=== PATIENT | female | born 2000 | race Caucasian/White ===

== ENCOUNTER 2021-02-19 14:09 | Emergency (ER) | payer MEDICAID, SELFPAY ==
[2021-02-19 14:25] VITALS: BP 107/75; PULSE 103; RESP 16; TEMP 36.7; O2SAT 97; BMI 28.8
--- NOTE | 2021-02-19 16:31 | USR_ITS ---
PROCEDURE INFORMATION: Exam: US First Trimester, Transabdominal and US , Transvaginal Exam date and time: 02/19/2021 4:31 PM Age: 20 years old Clinical indication: Other: Pain, cramping; Gestational age or lmp: 12 wks 1 day; ; Additional info: Pain/cramping TECHNIQUE: Imaging protocol: Real-time transabdominal obstetrical ultrasound of the maternal pelvis and a first trimester , less than 14 weeks 0 days, with image documentation. Transvaginal imaging was used for better evaluation of the fetus, adnexa, and/or cervix. COMPARISON: No relevant prior studies available. FINDINGS: Gestation: Single live intrauterine Embryonic/ heart rate: 167 bpm Extra-embryonic membranes/Placenta: Unremarkable. No subchorionic bleed. Amniotic fluid: Amniotic fluid/chorionic fluid is normal for gestational age. BIOMETRY: Gestational age (AUA): 12 weeks 6 day Estimated due date (AUA): 08/28/2021 [place] length: 6.52 cm 12 weeks 6 day MATERNAL: Uterus: Uterus measures 10.9 x 9.5 x 9.6 cm. Cervix: Unremarkable. Right ovary/adnexa: Right ovary not visualized Left ovary/adnexa: Left ovary not visualized Intraperitoneal space: No intraperitoneal free fluid. US/US OB <= 14 weeks fetus [id number] IMPRESSION: Single live intrauterine of approximately 12 weeks 6 days gestational age. Radiation Dose CTDIVOL = (mGy): DLP = (mGy-cm)
--- NOTE | 2021-02-19 16:31 | W.ED.PREGNAN ---
Documented by User: KEMAR Mcarthur 02/20/21 07:10 HPI - General: Chief complaint: Urogenital-Female Stated complaint: 12w peg, spotting and cramping Time Seen by Provider: 02/19/21 16:21 Source: patient and family Mode of arrival: ambulatory Limitations: no limitations History of Present Illness: HPI Narrative: Patient is a 20-year-old female at approximately 12 weeks here along with her mother for concerns of lower abdominal/pelvic pain and cramping and vaginal bleeding/discharge. Mother states patient has had intermittent episodes of pelvic cramping over the past 4 days. She states when she wiped yesterday evening she saw a small amount of blood on the toilet paper. She states she has not had any further bleeding but states when she wiped today she noticed yellow mucus-like discharge. Patient denies urinary symptoms. She states the pain feels crampy and radiates into her lower back and makes her have the urge to defecate. Patient states she is sexually active/monogamous with her but they have not engaged in intercourse since they found out she was . Patient states was confirmed/intrauterine during an ultrasound at [facility]. Associated symptoms: Reports abdominal pain and vaginal discharge; Deny dysuria, headache(s), malaise, nausea or vomiting Review of Systems Const: Denies: fever(s), chills, body aches, fatigue or malaise Card: Denies: chest pain Resp: Denies: dyspnea GI: Reports: abdominal pain; Denies: nausea, vomiting or diarrhea : Reports: vaginal bleeding, vaginal discharge and pelvic pain; Denies: flank pain, difficulty voiding, dysuria, urinary frequency, urinary urgency, hematuria, genital lesions, genital pruritis or vaginal odor Musc: Reports: back pain; Denies: neck pain, extremity pain or joint pain Skin/Breast: Denies: rash Neuro: Denies: headache(s), numbness in extremities, weakness in extremities or sensory changes PFS ED PFSH: Medical History No pertinent past medical history Denies diabetes, asthma, hypertension, seizures, DVT/PE PCP: LUIS Aguillon Surgical History No history of previous surgery Family History Grandfather Hyperlipidemia maternal Hypertension maternal Stroke maternal Heart disease maternal and paternal Mother Thyroid condition Grandmother Heart disease maternal and paternal Breast cancer paternal, diagnosed at age 54 Colon cancer maternal, age at diagnosis unknown Family/Other Uterine cancer maternal aunt, diagnosed in her 30s. Treated with hysterectomy and chemo therapy. Denies family history of Ovarian cancer Diabetes Social History Smoking and tobacco status: never smoked Course Vital Signs: Vital signs: Vital Signs Temperature 98.0 F 02/19/21 14:25 Pulse Rate 89 02/19/21 19:01 Respiratory Rate 16 02/19/21 19:01 Blood Pressure 111/77 02/19/21 19:01 Pulse Oximetry 97 02/19/21 19:01 MDM - OB/Uterine Contractions MDM Narrative: Medical decision making narrative: Care transferred to LUIS Gutierrez pending labs/UA/OB US/pelvic exam. Lab Data: Labs: Lab Results 02/19/21 02/19/21 02/19/21 17:00 17:15 17:15 Hgb 12.5 g/dL g/dL (11.5-15.3) Hct 38.8 % % (37.0-47.0) Ser , Mihir i-Qnt Urine Color Dark yellow (Yellow) Urine Appearance Sl hazy (CLEAR) Urine pH 6 (5-7) Ur Specific Gravit y 1.020 (1.005-1.030) Urine Protein Neg (Negative) Urine Glucose (UA) Norm (Normal) Urine Ketones Negative (Negative) Urine Blood Neg (Negative) Urine Nitrate Negative (Negative) Urine Bilirubin 1+ H (Negative) Urine Urobilinogen 1 mg/dL H mg/dL (Negative) Ur Leukocyte Reyna ase 2+ H (Negative) Urine RBC 0-4 /hpf H /hpf (0-2) Urine WBC 25-40 /hpf H /hpf (0-5) Ur Squamous Epith Cells 25-40 /hpf H /hpf (0-5) Amorphous Sediment Not Reportable Urine Bacteria 2+ /hpf H /hpf (NONE) Urine Mucus 2+ /hpf /hpf Blood Type A Positive Rho(D) Type Positive 02/19/21 17:15 Hgb Hct Ser , Mihir i-Qnt 78518.00 mIU/mL m IU/mL Urine Color Urine Appearance Urine pH Ur Specific Gravit y Urine Protein Urine Glucose (UA) Urine Ketones Urine Blood Urine Nitrate Urine Bilirubin Urine Urobilinogen Ur Leukocyte Reyna ase Urine RBC Urine WBC Ur Squamous Epith Cells Amorphous Sediment Urine Bacteria Urine Mucus Blood Type Rho(D) Type Discharge Plan Discharge Patient Disposition: Home Clinical Impression: Urinary tract infection Qualifiers: Urinary tract infection type: acute cystitis Hematuria presence: without hematuria Qualified Code(s): N30.00 - Acute cystitis without hematuria Condition: Stable Prescriptions: New Macrobid 100 mg capsule 100 mg PO BID 5 Days Qty: 10 RF: 0 Discontinued cephalexin 500 mg capsule 500 mg PO TID 7 Days Qty: 21 RF: 0 Discharge Orders: Discharge ED (Routine); Ordered 02/19/21 Ordered By: Hari Hinkle Referrals: Fely Soto FNP [Primary Care Provider] - Discharge Diet: Usual diet Discharge Activity: Increase activity as tolerated Patient Instructions: Urinary Tract Infection in Women (ED) Activity Restrictions/Additional Instructions: Follow-up with medical provider as directed. Take medications as prescribed. Return to the ER or your medical provider if condition worsens. Please read and understand discharge instructions. If any questions ask please. Coding Level of Care Code ED Head Of Sales Promotion for Chg Fwd Exam Comprehensive Documented by User: LUIS Gutierrez 02/19/21 20:04 HPI - General: Chief complaint: Urogenital-Female Stated complaint: 12w peg, spotting and cramping Time Seen by Provider: 02/19/21 16:21 History of Present Illness: Associated symptoms: Deny vaginal bleeding [facility] ED PFSH: Medical History No pertinent past medical history Denies diabetes, asthma, hypertension, seizures, DVT/PE PCP: LUIS Aguillon Surgical History No history of previous surgery Family History Grandfather Hyperlipidemia maternal Hypertension maternal Stroke maternal Heart disease maternal and paternal Mother Thyroid condition Grandmother Heart disease maternal and paternal Breast cancer paternal, diagnosed at age 54 Colon cancer maternal, age at diagnosis unknown Family/Other Uterine cancer maternal aunt, diagnosed in her 30s. Treated with hysterectomy and chemo therapy. Denies family history of Ovarian cancer Diabetes Social History Smoking and tobacco status: never smoked Physical Exam Const: COMMON NORMALS: no acute distress, average body habitus and patient oriented x3 HENMT: COMMON NORMALS: normocephalic HEAD & SCALP: normal to inspection and normocephalic FACE & SINUS: normal facial exam Eye: COMMON NORMALS: conjunctivae normal GENERAL EYE: appearance normal, both eyes and all related structures CONJUNCTIVA: Yes conjunctivae normal Neck/C-Spine: COMMON NORMALS: no JVD Chest: COMMONS NORMALS: normal inspection of the chest Resp: COMMON NORMALS: normal respiratory effort and clear to auscultation bilaterally AUSCULTATION: clear to auscultation bilaterally Cardio: COMMON NORMALS: no JVD, regular rate and regular rhythm RATE: regular rate RHYTHM: regular rhythm GI: COMMON NORMALS: Normal to inspection, nondistended, normoactive bowel sounds present : COMMON NORMALS: Yes no CVA tenderness BLADDER/KIDNEY EXAM: Yes no CVA tenderness EXTERNAL FEMALE EXAM: Yes normal appearance of the urethra SPECULUM EXAM - VAGINA: No vaginal bleeding, No tissue present in vagina, No mass, No swelling, No tenderness and Yes Vaginal discharge present Vaginal discharge present: normal SPECULUM EXAM - CERVIX: No Cervical os open, No Abnormal cervical discharge present and No Cervical tenderness present BIMANUAL EXAM - VAGINA & UTERUS: No Cervical tenderness present OB/EXTERNAL & SPECULUM: no tissue noted in vagina, Cervical os open and vaginal bleeding Back/Pelvis: COMMON NORMALS: no CVA tenderness Extremity: COMMON NORMALS: normal to inspection and full ROM Neuro: COMMON NORMALS: patient oriented x3 Course Vital Signs: Vital signs: Vital Signs Temperature 98.0 F 02/19/21 14:25 Pulse Rate 89 02/19/21 19:01 Respiratory Rate 16 02/19/21 19:01 Blood Pressure 111/77 02/19/21 19:01 Pulse Oximetry 97 02/19/21 19:01 MDM - OB/Uterine Contractions MDM Narrative: Medical decision making narrative: Patient presented with vaginal discharge and pelvic pressure. Recently evaluated at [facility] ER for a child following her abdomen. Patient ultrasound shows 12 weeks 6 days . Patient not having vaginal bleeding. Vaginal exam reveals normal discharge. Cervix looks fine os is closed. UA showed possible appear to be contaminated. 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 Lab Data: Labs: Lab Results 02/19/21 02/19/21 02/19/21 17:00 17:15 17:15 Hgb 12.5 g/dL g/dL (11.5-15.3) Hct 38.8 % % (37.0-47.0) Ser , Mihir i-Qnt Urine Color Dark yellow (Yellow) Urine Appearance Sl hazy (CLEAR) Urine pH 6 (5-7) Ur Specific Gravit y 1.020 (1.005-1.030) Urine Protein Neg (Negative) Urine Glucose (UA) Norm (Normal) Urine Ketones Negative (Negative) Urine Blood Neg (Negative) Urine Nitrate Negative (Negative) Urine Bilirubin 1+ H (Negative) Urine Urobilinogen 1 mg/dL H mg/dL (Negative) Ur Leukocyte Reyna ase 2+ H (Negative) Urine RBC 0-4 /hpf H /hpf (0-2) Urine WBC 25-40 /hpf H /hpf (0-5) Ur Squamous Epith Cells 25-40 /hpf H /hpf (0-5) Amorphous Sediment Not Reportable Urine Bacteria 2+ /hpf H /hpf (NONE) Urine Mucus 2+ /hpf /hpf Blood Type A Positive Rho(D) Type Positive 02/19/21 17:15 Hgb Hct Ser , Mihir i-Qnt 79332.00 mIU/mL m IU/mL Urine Color Urine Appearance Urine pH Ur Specific Gravit y Urine Protein Urine Glucose (UA) Urine Ketones Urine Blood Urine Nitrate Urine Bilirubin Urine Urobilinogen Ur Leukocyte Reyna ase Urine RBC Urine WBC Ur Squamous Epith Cells Amorphous Sediment Urine Bacteria Urine Mucus Blood Type Rho(D) Type Discharge Plan Discharge Patient Disposition: Home Clinical Impression: Urinary tract infection Qualifiers: Urinary tract infection type: acute cystitis Hematuria presence: without hematuria Qualified Code(s): N30.00 - Acute cystitis without hematuria Condition: Stable Prescriptions: New Macrobid 100 mg capsule 100 mg PO BID 5 Days Qty: 10 RF: 0 Discontinued cephalexin 500 mg capsule 500 mg PO TID 7 Days Qty: 21 RF: 0 Discharge Orders: Discharge ED (Routine); Ordered 02/19/21 Ordered By: Hari Hinkle Referrals: Fely Soto FNP [Primary Care Provider] - Discharge Diet: Usual diet Discharge Activity: Increase activity as tolerated Patient Instructions: Urinary Tract Infection in Women (ED) Activity Restrictions/Additional Instructions: Follow-up with medical provider as directed. Take medications as prescribed. Return to the ER or your medical provider if condition worsens. Please read and understand discharge instructions. If any questions ask please. Coding Level of Care Code ED Head Of Sales Promotion for Chg Fwd Exam Comprehensive Documented by User: Dominic Singh MD 02/23/21 21:37 HPI - General: Chief complaint: Urogenital-Female Stated complaint: 12w peg, spotting and cramping Time Seen by Provider: 02/19/21 16:21 PFS ED PFSH: Medical History No pertinent past medical history Denies diabetes, asthma, hypertension, seizures, DVT/PE PCP: LUIS Aguillon Surgical History No history of previous surgery Family History Grandfather Hyperlipidemia maternal Hypertension maternal Stroke maternal Heart disease maternal and paternal Mother Thyroid condition Grandmother Heart disease maternal and paternal Breast cancer paternal, diagnosed at age 54 Colon cancer maternal, age at diagnosis unknown Family/Other Uterine cancer maternal aunt, diagnosed in her 30s. Treated with hysterectomy and chemo therapy. Denies family history of Ovarian cancer Diabetes Social History Smoking and tobacco status: never smoked Course Vital Signs: Vital signs: Vital Signs Temperature 98.0 F 02/19/21 14:25 Pulse Rate 89 02/19/21 19:01 Respiratory Rate 16 02/19/21 19:01 Blood Pressure 111/77 02/19/21 19:01 Pulse Oximetry 97 02/19/21 19:01 MDM - OB/Uterine Contractions MDM Narrative: Medical decision making narrative: I have reviewed this documentation. Dominic Singh MD Emergency Medicine Lab Data: Labs: Lab Results 02/19/21 02/19/21 02/19/21 17:00 17:15 17:15 Hgb 12.5 g/dL g/dL (11.5-15.3) Hct 38.8 % % (37.0-47.0) Ser , Mihir i-Qnt Urine Color Dark yellow (Yellow) Urine Appearance Sl hazy (CLEAR) Urine pH 6 (5-7) Ur Specific Gravit y 1.020 (1.005-1.030) Urine Protein Neg (Negative) Urine Glucose (UA) Norm (Normal) Urine Ketones Negative (Negative) Urine Blood Neg (Negative) Urine Nitrate Negative (Negative) Urine Bilirubin 1+ H (Negative) Urine Urobilinogen 1 mg/dL H mg/dL (Negative) Ur Leukocyte Reyna ase 2+ H (Negative) Urine RBC 0-4 /hpf H /hpf (0-2) Urine WBC 25-40 /hpf H /hpf (0-5) Ur Squamous Epith Cells 25-40 /hpf H /hpf (0-5) Amorphous Sediment Not Reportable Urine Bacteria 2+ /hpf H /hpf (NONE) Urine Mucus 2+ /hpf /hpf Blood Type A Positive Rho(D) Type Positive 02/19/21 17:15 Hgb Hct Ser , Mihir i-Qnt 48711.00 mIU/mL m IU/mL Urine Color Urine Appearance Urine pH Ur Specific Gravit y Urine Protein Urine Glucose (UA) Urine Ketones Urine Blood Urine Nitrate Urine Bilirubin Urine Urobilinogen Ur Leukocyte Reyna ase Urine RBC Urine WBC Ur Squamous Epith Cells Amorphous Sediment Urine Bacteria Urine Mucus Blood Type Rho(D) Type Discharge Plan Discharge Patient Disposition: Home Clinical Impression: Urinary tract infection Qualifiers: Urinary tract infection type: acute cystitis Hematuria presence: without hematuria Qualified Code(s): N30.00 - Acute cystitis without hematuria Condition: Stable Prescriptions: New Macrobid 100 mg capsule 100 mg PO BID 5 Days Qty: 10 RF: 0 Discontinued cephalexin 500 mg capsule 500 mg PO TID 7 Days Qty: 21 RF: 0 Discharge Orders: Discharge ED (Routine); Ordered 02/19/21 Ordered By: Hari Hinkle Referrals: Fely Soto FNP [Primary Care Provider] - Discharge Diet: Usual diet Discharge Activity: Increase activity as tolerated Patient Instructions: Urinary Tract Infection in Women (ED) Activity Restrictions/Additional Instructions: Follow-up with medical provider as directed. Take medications as prescribed. Return to the ER or your medical provider if condition worsens. Please read and understand discharge instructions. If any questions ask please. Coding Level of Care Code ED Head Of Sales Promotion for Barbara Fwd Exam Comprehensive
[2021-02-19 17:19] VITALS: BP 115/66; PULSE 87; RESP 16; O2SAT 100
[2021-02-19 17:26] LABS: Hematocrit 38.8 % (37.0-47.0); Hemoglobin 12.5 g/dL (11.5-15.3)
[2021-02-19 18:13] LABS: Add Urine Culture? No; Add Urine Microscopic? YES; Bacteria Urine 2+ /hpf; Bilirubin Urine 1+ (Negative); Blood Urine Neg (Negative); Glucose Urine UA Norm (Normal); Ketones Urine Negative (Negative); Leukocyte Esterase Urine 2+ (Negative); Mucus Urine 2+ /hpf; Nitrate Urine Negative (Negative); Protein Urine Neg (Negative); RBC Urine 0-4 /hpf (0-2); Squamous Epithelial Cell Urine 25-40 /hpf (0-5); Urine Appearance SL Hazy (CLEAR); Urine Color Dark Yellow (Yellow); Urobilinogen Urine 1 mg/dL (Negative); WBC Urine 25-40 /hpf (0-5); pH Urine 6 (5-7)
[2021-02-19] MEDS: nitrofurantoin SR (BID) 100 mg Capsule PO (18:53)
--- NOTE | 2021-02-19 19:00 | PC.NURSE ---
REPORT GIVEN TO DEBORA BHAGAT ASSUMED CARE
[2021-02-19 19:01] VITALS: BP 111/77; PULSE 89; RESP 16; O2SAT 97
== END 2021-02-19 19:02 | disposition home or self-care (01) ==
PROVIDERS: Emergency Medicine; Physician Assistant; Emergency Provider Nurse Practitioner Family; PCP Nurse Practitioner Family
DX: M54.50 Low back pain, unspecified (principal); O23.41 Unspecified infection of urinary tract in pregnancy, first trimester; N30.00 Acute cystitis without hematuria; Z3A.12 12 weeks gestation of pregnancy
CPT/HCPCS: 76801; 81001; 84702; 85014; 85018; 86900; 87070; 87210; 87491; 87591; 99283

== ENCOUNTER 2021-05-27 15:21 | Emergency (ER) | payer MEDICAID, SELFPAY ==
[2021-05-27 15:57] VITALS: BP 92/62; PULSE 115; RESP 18; TEMP 36.9; O2SAT 99; BMI 29.6
--- NOTE | 2021-05-27 18:36 | XRR_ITS ---
PROCEDURE INFORMATION: Exam: XR Chest Exam date and time: 05/27/2021 6:36 PM Age: 21 years old Clinical indication: Cough and fever TECHNIQUE: Imaging protocol: XR of the chest. Views: 1 view. COMPARISON: CR Chest 2 views* [id number] 08/21/2018 8:14 PM FINDINGS: Lungs: Unremarkable. No consolidation. Pleural spaces: Unremarkable. No pleural effusion. No pneumothorax. Heart/Mediastinum: Unremarkable. No cardiomegaly. Bones/joints: Unremarkable. XR/XR chest 1V portable [id number] IMPRESSION: No acute findings.
--- NOTE | 2021-05-27 18:37 | W.ED.URI ---
HPI - URI/Sore Throat General: Chief Complaint: Fever Stated Complaint: SOB Time Seen by Provider: 05/27/21 17:47 History of Present Illness: Patient is a 21-year-old female that is 26 weeks comes to the ED with upper respiratory. Symptoms started several days ago. Patient's just tested positive for influenza A. Patient endorses having nonproductive cough, fever, chills, body aches. She denies any symptoms concerning her . Denies any dysuria, vaginal bleeding, vaginal discharge, abdominal pain or nausea and vomiting. Associated symptoms: Reports chills and fever(s); Deny abdominal pain, chest pain, diarrhea, headache(s), nasal congestion, nausea or vomiting Review of Systems Const: Reports: fever(s), chills and body aches; Denies: fatigue Eyes: Denies: change in vision or eye discomfort ENMT: Denies: throat pain, odynophagia, nasal discharge or nasal congestion Card: Denies: chest pain, palpitations, edema, swelling of feet/ankles, dyspnea on exertion or orthopnea Resp: Reports: non-productive cough; Denies: dyspnea or productive cough GI: Denies: abdominal pain, nausea, vomiting, diarrhea, constipation or hematochezia : Denies: flank pain, dysuria or hematuria Musc: Denies: neck pain, back pain or extremity swelling Skin/Breast: Denies: rash or new lesions Neuro: Denies: headache(s), numbness in extremities or weakness in extremities PFSH ED PFSH: Medical History No pertinent past medical history Denies diabetes, asthma, hypertension, seizures, DVT/PE PCP: LUIS Aguillon Surgical History No history of previous surgery Family History Grandfather Hyperlipidemia maternal Hypertension maternal Stroke maternal Heart disease maternal and paternal Mother Thyroid condition Grandmother Heart disease maternal and paternal Breast cancer paternal, diagnosed at age 54 Colon cancer maternal, age at diagnosis unknown Family/Other Uterine cancer maternal aunt, diagnosed in her 30s. Treated with hysterectomy and chemo therapy. Denies family history of Ovarian cancer Diabetes Social History Smoking and tobacco status: never smoked Physical Exam Const: COMMON NORMALS: no acute distress, patient oriented x3 and alert GENERAL APPEARANCE: cooperative and comfortable HENMT: COMMON NORMALS: normocephalic HEAD & SCALP: normocephalic MOUTH: Normal oral and palatal mucosa present THROAT: posterior oropharynx normal and uvula midline Neck/C-Spine: COMMON NORMALS: supple GENERAL: Yes normal visual inspection Resp: COMMON NORMALS: normal respiratory effort, No retractions, No use of accessory muscles and clear to auscultation bilaterally AUSCULTATION: clear to auscultation bilaterally Cardio: COMMON NORMALS: regular rate, regular rhythm, S1 normal heart sound present, S2 normal heart sound present, No gallops present (Cardio), No clicks present (Cardio), No murmurs present (Cardio) and Peripheral pulses 2+ throughout RATE: regular rate RHYTHM: regular rhythm HEART SOUNDS: S1 normal heart sound present and S2 normal heart sound present PERIPHERAL PULSES: Peripheral pulses 2+ throughout GI: COMMON NORMALS: Normal to inspection, nondistended, normoactive bowel sounds present, Soft to palpation, non-tender and no masses PALPATION: Yes Soft to palpation : COMMON NORMALS: Yes no CVA tenderness BLADDER/KIDNEY EXAM: Yes no CVA tenderness Back/Pelvis: COMMON NORMALS: no CVA tenderness Extremity: COMMON NORMALS: normal to inspection and no pedal edema Neuro: COMMON NORMALS: patient oriented x3 and moves all extremities SENSORIUM/ORIENTATION: Yes alert Skin: GENERAL SKIN EXAM: dry skin Course ED course: Nurse used Doppler to check heart tones. heart tones were detected at a rate of 155 bpm. Vital Signs: Vital signs: Vital Signs Temperature 98.6 F 05/27/21 19:52 Pulse Rate 120 H 05/27/21 19:52 Respiratory Rate 18 05/27/21 19:52 Blood Pressure 116/58 05/27/21 19:52 Pulse Oximetry 97 05/27/21 19:52 MDM - URI/Sore Throat Medical Decision Making Patient is a 21-year-old female comes to the ED with upper respiratory symptoms. She is currently 26 weeks . patient's just tested positive for influenza a. Denies any related complaints such as abdominal pain, nausea/vomiting, bladder symptoms or any vaginal bleeding or vaginal discharge. Vitals are stable. Patient was given Tylenol while here in the ED to help with body aches. Influenza a was positive. Chest x-ray showed no acute findings. Nurse performed Doppler and was able to detect heart tones at a rate of 155 bpm. Patient was diagnosed with influenza A and discharged home. She was told to follow-up with her OB doctor at her next scheduled appointment on June 01. Return to ED precautions given. Patient understood and agreed with plan. Lab Data Radiology Impressions Chest X-Ray 05/27/21 18:36 IMPRESSION: No acute findings. Laboratory Results Nasal Influ A H1 2009 PCR Cancelled 05/27/21 21:09 Coronavirus 229E (PCR) Not detected (NOT DETECT) 05/27/21 19:08 Influenza A (H1) PCR Cancelled 05/27/21 21:09 Influenza A (H3) PCR Cancelled 05/27/21 21:09 Influenza Type A (PCR) Cancelled 05/27/21 21:09 Influenza Type B (PCR) Cancelled 05/27/21 21:09 SARS-CoV-2 (PCR) Not detected (NOT DETECT) 05/27/21 19:08 Discharge Plan Discharge Patient Disposition: Home Clinical Impression: Influenza A, Viral syndrome Condition: Stable Discharge Orders: Discharge ED (Routine); Ordered 05/27/21 Ordered By: Saroj Ruiz Referrals: Fely Soto FNP [Primary Care Provider] - Discharge Diet: Regular Discharge Activity: Resume usual activity Patient Instructions: Viral Syndrome (ED) Activity Restrictions/Additional Instructions: Follow-up with medical provider as directed at your next scheduled appointment on June 01. Drink plenty of fluids and stay hydrated. Take [id number] Tylenol for any fevers. Return to the ER or your medical provider if condition worsens. Please read and understand discharge instructions. Thank you for choosing [facility] for your healthcare needs today. Please realize this is an emergency room and that we are providing you with a medical screening exam and this may not be complete and all inclusive of all the testing and or work up that you may need to determine your ailment or severity of your illness. It is very important that you follow up as instructed or that you return to the Emergency Department should you have concerns or if your condition changes or worsens in any way. Stand Alone Forms: Work/School Release Coding Level of Care Code ED Air Carrier Maintenance Inspector for Barbara Javed Exam Comprehensive
[2021-05-27] MEDS: acetaminophen 500 mg Tablet 1000 MG PO (19:06)
[2021-05-27 19:52] VITALS: BP 116/58; PULSE 120; RESP 18; TEMP 37; O2SAT 97
[2021-05-27 20:56] LABS: Adenovirus Not Detected (NOT DETECT); Chlamydia Pneumoniae Not Detected (NOT DETECT); Coronavirus 229E,HKU1,NL63,OC4 Not Detected (NOT DETECT); Human Metapneumovirus Not Detected (NOT DETECT); Human Rhinovirus/Enterovirus Not Detected (NOT DETECT); Influenza A Detected (NOT DETECT); Influenza A H1 Not Detected (NOT DETECT); Influenza A H1-2009 Not Detected (NOT DETECT); Influenza A H3 Detected (NOT DETECT); Influenza B Not Detected (NOT DETECT); Mycoplasma Pneumoniae Not Detected (NOT DETECT); Parainfluenza Virus Type 1 Not Detected (NOT DETECT); Parainfluenza Virus Type 2 Not Detected (NOT DETECT); Parainfluenza Virus Type 3 Not Detected (NOT DETECT); Parainfluenza Virus Type 4 Not Detected (NOT DETECT); Respiratory Syncytial Virus A Not Detected (NOT DETECT); Respiratory Syncytial Virus B Not Detected (NOT DETECT); SARS-COV-2 Not Detected (NOT DETECT)
[2021-05-27 21:09] LABS: Results from Genmark
== END 2021-05-27 19:54 | disposition home or self-care (01) ==
PROVIDERS: Nurse Practitioner Family; Emergency Provider Physician Assistant; PCP Nurse Practitioner Family
DX: J10.1 Influenza due to other identified influenza virus with other respiratory manifestations (principal); B34.9 Viral infection, unspecified; Z20.822 Contact with and (suspected) exposure to COVID-19
CPT/HCPCS: 71045; 87631; 87635; 99283

== ENCOUNTER 2021-08-13 22:31 | Outpatient (CLI) | payer MEDICAID, SELFPAY ==
[2021-08-13 22:43] VITALS: BP 112/72; PULSE 109; TEMP 36.1
[2021-08-13 22:46] VITALS: RESP 16
[2021-08-13 22:47] VITALS: BMI 31.9
[2021-08-13 23:05] LABS: Bilirubin Urine Neg (Negative); Blood Urine Neg (Negative); Glucose Urine UA Norm (Normal); Ketones Urine 1+ (Negative); Leukocyte Esterase Urine 2+ (Negative); Nitrate Urine Negative (Negative); Protein Urine Trace (Negative); Specific Gravity, Urine 1.025 (1.005-1.030); Urine Color Yellow (Yellow); Urobilinogen Urine 4 mg/dL (Negative); pH Urine 5 (5-7)
[2021-08-13 23:06] LABS: Urine Appearance Hazy (CLEAR)
[2021-08-13 23:07] LABS: Add Urine Culture? No; Bacteria Urine 2+ /hpf; RBC Urine 0-4 /hpf (0-2); Squamous Epithelial Cell Urine >100 /hpf (0-5); WBC Urine 40-55 /hpf (0-5)
[2021-08-13 23:14] VITALS: BP 116/73; PULSE 102
[2021-08-13 23:25] VITALS: BP 116/73; PULSE 102; RESP 16; TEMP 36.1
== END 2021-08-13 23:25 | disposition home or self-care (01) ==
LOC: OPOB 22:31 → OBGYN 22:34
PROVIDERS: PCP Nurse Practitioner Family; Visit Provider Family Medicine
DX: O26.899 Other specified pregnancy related conditions, unspecified trimester (principal); Z3A.00 Weeks of gestation of pregnancy not specified; R10.9 Unspecified abdominal pain
CPT/HCPCS: 59025; 81001; 99211

== ENCOUNTER 2021-08-20 08:09 | Inpatient (IN) | payer MEDICAID, SELFPAY ==
[2021-08-19 23:12] VITALS: RESP 16
[2021-08-19 23:17] VITALS: BP 129/80; PULSE 93
[2021-08-19 23:26] VITALS: BMI 32.3
[2021-08-19 23:38] VITALS: BP 119/75; PULSE 96
[2021-08-19 23:46] VITALS: RESP 16
[2021-08-19 23:52] VITALS: BP 127/81; PULSE 100
[2021-08-20] VITALS (37 sets, daily range): BP systolic 87–130; BP diastolic 56–84; PULSE 72–118; RESP 16–18; TEMP 36.6–36.9; O2SAT 97
[2021-08-20 00:43] LABS: Hematocrit 33.2 % (37.0-47.0); Hemoglobin 9.5 g/dL (11.5-15.3); Mean Corpuscular HGB Conc 28.6 g/dL (30.0-36.0); Mean Corpuscular Hemoglobin 19.6 pg (28.0-34.0); Mean Corpuscular Volume 68.6 fl (81-99); Platelet Count 289 10^3/cmm (130-400); Red Blood Count 4.84 10^6/uL (4.1-5.3); Red Cell Distribution Width 16.4 % (12.1-15.1); White Blood Count 10.5 10^3/uL (4.0-10.0)
[2021-08-20 01:12] LABS: Rubella IgG 124.6 IU/mL (0.0-10.0)
[2021-08-20 01:13] LABS: Hepatitis B Surface Antigen Non-Reactive (Nonreactive)
[2021-08-20 01:18] LABS: Rapid Plasma Reagin Syphilis Nonreactive (Nonreactive)
[2021-08-20 01:19] LABS: HIV 1 & 2 Antibody Non-Reactive (Non-Reactiv); HIV 1 & 2 Antigen Non-Reactive (Non-Reactiv)
[2021-08-20 02:00] LABS: Absolute Eosinophils 0.4 10^3/cmm (0.0-0.7); Absolute Neutrophil 7.5 10^3/cmm (1.4-6.5); Absolute Segmented Neutrophil 7.5 10/cmm (1.6-7.1); Eosinophils 4 %; Lymphocytes 21 %; Lymphocytes Absolute 2.3 10^3/cmm (1.2-3.4); Monocytes Absolute 0.3 10^3/cmm (0.1-0.6); Platelet Estimate Normal (Normal); Segmented Neutrophils 71 %; Total Cells Counted 100 (0-100)
[2021-08-20 02:01] LABS: Anisocytosis Trace
[2021-08-20] MEDS: dextrose 5%-lactated ringers 1,000 ML 125 ML IV ×2 (03:13→11:15)
[2021-08-20] MEDS: oxytocin 30 UNIT/500 ML BAG IV (08:12)
[2021-08-20] MEDS: ondansetron 2 mg/ML SDV 2 mL 4 MG IVP (17:24)
[2021-08-20] MEDS: methylergonovine 0.2 mg/mL INJ 1 mL IM (17:48)
[2021-08-20] MEDS: lidocaine 2% INJ 20 mL INJECTION (17:48)
--- NOTE | 2021-08-20 18:16 | P.PCNOB_ITS ---
Delivery Note: Date of delivery: August 20, 2021 - PRE-DELIVERY DIAGNOSIS: 21-year-old 3 para 2-0-0-2 at 38 weeks and 2 days gestation Active labor Protracted labor Outside care GBS negative Anemia with a hemoglobin of 9.5 POST-DELIVERY DIAGNOSIS: Vaginal delivery on 08/20/2021 PROCEDURE: Vaginal delivery on 08/20/2021 ANESTHESIA: 2% lidocaine DELIVERING PHYSICIAN: Amena Reyes FACOG PRE-DELIVERY COURSE: Ms Marti is a 21-year-old 3 para 2-0-0-2 at 38 weeks and 2 days who presented to labor and delivery on 08/19/2021 with reports of contractions. On admission she was 5 cm and was admitted in active labor. She was overnight and made minimal cervical change to 6. She made no further cervical change and was started on Pitocin for augmentation of labor. She was noted to leak clear fluid at 11:15 AM on 08/20/2021. tracing was category 1 thus far. She continued to make slow progress and was 7 cm at this time. She made slow progress and was 8 cm at 2 PM and was noted to have a 4 bag. This was ruptured at 4:49 PM with clear fluid and she made rapid cervical change and was fully dilated and +3 station at 5:39 PM and set up in lithotomy ready to push DELIVERY NOTE: She was set up in lithotomy position and was pushing effectively. She was noted to be +3 station and continued pushing well. The head delivered in IVAN position, no nuchal cord was present. There was however a new colon left arm which was reduced without any difficulty. The shoulders and rest of the body followed with her next push. The baby's mouth and nose were suctioned and the baby was placed on the mother's belly. Once cord pulsations stopped the cord was clamped and cut. The placenta delivered spontaneously intact with membranes and was discarded. The fundus was noted to be firm and well contracted. The lower segment however was very boggy despite bimanual massage and she was given a single dose of Methergine after which tone improved. The vagina and cervix were inspected and no cervical or sulcal lacerations were noted. There was a first-degree perineal laceration which was repaired with 3-0 Vicryl on an SH in a continuous interlocking fashion after infiltrating this area with 2% lidocaine and confirming analgesia. Good hemostasis and reapproximation was obtained. Baby boy born at 5:41 PM with 9/9, weighing 7 pounds 5 ounces, 3320 g 21- 1/2 inches long. Placenta was delivered spontaneously intact with membranes at 5:46 PM. Cotyledons were intact , centrally inserted umbilical cord with 3 vessels noted. Estimated blood loss 400 mL. Complications-none, both baby and recover in a stable condition. This documentation was created by [employer] educational technologist software (known for inherent educational technologist error). Every effort was made to assure accuracy of educational technologist. Any obvious errors or omissions should be clarified with the author of the document. History History History 3 Term 3 Miscarriages/Ectopic 0 0 Living Children 3 Other History: 3, Para 3003 x 3 1--> 05/14/2015, male,(Donnie), 10 lbs 8 ozs, 41 weeks, no epidural, delivered at [facility] in [place], [place]. Delivery was complicated by shoulder dystocia and 4th degree laceration. 2--> 04/29/2018, female,(Leeanna), 7 lbs 8 ozs, 40 weeks, epidural delivered by Dr. Wen at [facility], [place], [place]. delivery was un complicated. 3----> 08/20/2021, male(), 7 pounds 5 ounces, 38+ weeks, active labor, [place] [facility] [place], first-degree perineal tear. Coding Level of Care Code Acute Tow Car Driver for Chg Tegan
[2021-08-20] MEDS: ibuprofen 800 mg tablet PO (22:25)
[2021-08-21] VITALS (9 sets, daily range): BP systolic 98–130; BP diastolic 55–85; PULSE 88–120; RESP 16–18; TEMP 36.8–37.1; O2SAT 97–99
[2021-08-21 06:39] LABS: Hemoglobin 7.3 g/dL (11.5-15.3); Mean Corpuscular HGB Conc 29.2 g/dL (30.0-36.0); Mean Corpuscular Hemoglobin 19.8 pg (28.0-34.0); Mean Corpuscular Volume 67.9 fl (81-99); Mean Platelet Volume 11.5 fL (7.4-10.4); Platelet Count 146 10^3/cmm (130-400); Red Blood Count 3.68 10^6/uL (4.1-5.3); Red Cell Distribution Width 16.2 % (12.1-15.1); White Blood Count 9.7 10^3/uL (4.0-10.0)
[2021-08-21] MEDS: docusate sodium 100 mg Capsule PO ×2 (08:17→17:50)
[2021-08-21] MEDS: prenatal vitamin Capsule 1 CAP PO (08:17)
[2021-08-21] MEDS: ibuprofen 800 mg tablet PO ×2 (08:17→14:58)
[2021-08-21 12:11] LABS: Basophils % 0.4 %; Eosinophils # 0.1 10^3/uL (0.0-0.8); Eosinophils % 1.1 %; Hematocrit 26.1 % (37.0-47.0); Hemoglobin 7.4 g/dL (11.5-15.3); Lymphocytes # 2.5 10^3/uL (0.8-4.8); Lymphocytes % 24.8 %; Mean Corpuscular HGB Conc 28.4 g/dL (30.0-36.0); Mean Corpuscular Hemoglobin 19.7 pg (28.0-34.0); Mean Corpuscular Volume 69.6 fl (81-99); Mean Platelet Volume 12.3 fL (7.4-10.4); Monocytes # 1.1 10^3/uL (0.2-0.9); Monocytes % 10.9 %; Neutrophils # 6.27 10^3/uL (1.8-7.7); Nucleated Red Blood Cells % 0 %; Platelet Count 234 10^3/cmm (130-400); Red Blood Count 3.75 10^6/uL (4.1-5.3); Red Cell Distribution Width 16.4 % (12.1-15.1); White Blood Count 10.1 10^3/uL (4.0-10.0)
--- NOTE | 2021-08-21 14:07 | P.DS_ITS ---
Discharge Providers CLINICAL TRIALS MANAGER Date of Admission: 08/20/21 08:09 Date of Discharge: 08/21/21 Attending Provider at Admission: Wyatt Menendez MD Attending Provider at Discharge: christopher shaw MD PRE-DELIVERY DIAGNOSIS: 21-year-old 3 para 2-0-0-2 at 38 weeks and 2 days gestation Active labor Protracted labor Outside care GBS negative Anemia with a hemoglobin of 9.5 POST-DELIVERY DIAGNOSIS: Vaginal delivery on 08/20/2021 PROCEDURE: Vaginal delivery on 08/20/2021 ANESTHESIA: 2% lidocaine DELIVERING PHYSICIAN: Christopher Shaw FACOG PRE-DELIVERY COURSE: Ms Marti is a 21-year-old 3 para 2-0-0-2 at 38 weeks and 2 days who presented to labor and delivery on 08/19/2021 with reports of contractions.? On admission she was 5 cm and was admitted in active labor.? She was overnight and made minimal cervical change to 6.? She made no further cervical change and was started on Pitocin for augmentation of labor.? She was noted to leak clear fluid at 11:15 AM on 08/20/2021.? tracing was category 1 thus far.? She continued to make slow progress and was 7 cm at this time.? She made slow progress and was 8 cm at 2 PM and was noted to have a 4 bag.? This was ruptured at 4:49 PM with clear fluid and she made rapid cervical change and was fully dilated and +3 station at 5:39 PM and set up in lithotomy ready to push DELIVERY? NOTE: She was set up in lithotomy position and was pushing effectively. She was noted to be? +3 station and continued pushing well. The head delivered in IVAN position, no nuchal cord was present.? There was however a new colon left arm which was reduced without any difficulty.? The shoulders and rest of the body followed with her next push. The baby's mouth and nose were suctioned and the baby was placed on the mother's belly.? Once cord pulsations stopped the cord was clamped and cut.? The placenta delivered spontaneously intact with membranes and was discarded. The fundus was noted to be firm and well contracted.? The low er segment however was very boggy despite bimanual massage and she was given a single dose of Methergine after which tone improved.? The vagina and cervix were inspected and no cervical or sulcal lacerations were noted.? There was a first- degree perineal laceration which was repaired with 3-0 Vicryl on an SH in a continuous interlocking fashion after infiltrating this area with 2% lidocaine and confirming analgesia.? Good hemostasis and reapproximation was obtained. Baby boy born at 5:41 PM with 9/9, weighing 7 pounds 5 ounces, 3320 g 21- 1/2 inches long. Placenta was delivered spontaneously intact with membranes at 5:46 PM. Cotyledons were intact , centrally? inserted umbilical cord with 3 vessels noted. Estimated blood loss 400 mL. Complications-none, both baby and recover in a stable condition. HOSPITAL COURSE: She underwent an uncomplicated vaginal delivery on 08/20/2021. She did well on day 0 and was ambulating well, tolerating regular diet, voiding freely, passing flatus. She was breast-feeding without difficulty and bonding well with her son. Circumcision was deferred as he had penile torsion per professor of archaeology. Pain was well-controlled with by mouth pain medication. She denied nausea, vomiting, fever, chills, shortness of breath, leg pain. She had moderate vaginal bleeding. On day # 1 she continued to do well with stable vital signs and hemoglobin was 7.3. Orthostatics performed were positive however patient stated that she was feeling fine and had absolutely no symptoms of anemia and declined blood transfusion. Repeat CBC 6 hours later was stable at 7.4 and vital signs continue to be stable. She had minimal to moderate bleeding. She was discharged home on day 1 in a stable condition, as she desired early discharge. Warning signs for endometritis, mastitis, DVT/PE were reviewed with her. Post delivery activity restrictions were also reviewed with her at all her questions were answered to her satisfaction. Is undecided about contraception and will discuss this with her primary OB. EXAM AT DISCHARGE: Gen.: No acute distress Heart: S1-S2 heard, regular rate and rhythm Lungs: Clear to auscultation bilaterally Abdomen: Soft, fundus firm below umbilicus, Legs: No calf tenderness, trace bilateral pitting pedal edema. CONDITION AT DISCHARGE: Stable This documentation was created by [employer] java technical architect software (known for inherent java technical architect error). Every effort was made to assure accuracy of java technical architect. Any obvious errors or omissions should be clarified with the author of the document. Primary Care Provider: LUIS Dorsey Reason for Visit Reason for Visit: CONTRACTIONS & LOWER BACK PAIN Information Peripartum Data: Delivery Method: Vaginal History History History 3 Term 3 Miscarriages/Ectopic 0 0 Living Children 3 Other History: 3, Para 3003 x 3 1--> 05/14/2015, male,(Donnie), 10 lbs 8 ozs, 41 weeks, no epidural, delivered at [facility] in [place], [place]. Delivery was complicated by shoulder dystocia and 4th degree laceration. 2--> 04/29/2018, female,(Leeanna), 7 lbs 8 ozs, 40 weeks, epidural delivered by Dr. Wen at [facility], [place], [place]. delivery was uncomplicated. 3----> 08/20/2021, male(), 7 pounds 5 ounces, 38+ weeks, active labor, [place] [facility] [place]ural, first-degree perineal tear. Discharge Data Studies Completed and Pending Laboratory Results WBC 10.1 10^3/uL (4.0-10.0) H 08/21/21 12:00 RBC 3.75 10^6/uL (4.1-5.3) L 08/21/21 12:00 Hgb 7.4 g/dL (11.5-15.3) L 08/21/21 12:00 Hct 26.1 % (37.0-47.0) L 08/21/21 12:00 MCV 69.6 fl (81-99) L 08/21/21 12:00 MCH 19.7 pg (28.0-34.0) L 08/21/21 12:00 MCHC 28.4 g/dL (30.0-36.0) L 08/21/21 12:00 RDW 16.4 % (12.1-15.1) H 08/21/21 12:00 Plt Count 234 10^3/cmm (130-400) D 08/21/21 12:00 MPV 12.3 fL (7.4-10.4) H 08/21/21 12:00 Neut % (Auto) 62.0 % 08/21/21 12:00 Lymph % (Auto) 24.8 % 08/21/21 12:00 [place] % (Auto) 10.9 % 08/21/21 12:00 Eos % (Auto) 1.1 % 08/21/21 12:00 Baso % (Auto) 0.4 % 08/21/21 12:00 Neut # (Auto) 6.27 10^3/uL (1.8-7.7) 08/21/21 12:00 Lymph # (Auto) 2.5 10^3/uL (0.8-4.8) 08/21/21 12:00 [place] # (Auto) 1.1 10^3/uL (0.2-0.9) H 08/21/21 12:00 Eos # (Auto) 0.1 10^3/uL (0.0-0.8) 08/21/21 12:00 Baso # (Auto) 0.0 10^3/uL (0.0-0.1) 08/21/21 12:00 Nucleated RBC % (auto) 0 % 08/21/21 12:00 Total Counted 100 (0-100) 08/19/21 00:10 Atypical Lymphs % 1.0 % (0-5) 08/19/21 00:10 Absolute Neutrophils 7.5 10^3/cmm (1.4-6.5) H 08/19/21 00:10 Segmented Neutrophils 71 % 08/19/21 00:10 Abs Segm Neuts (Man) 7.5 10/cmm (1.6-7.1) H 08/19/21 00:10 Band Neutrophils 0.0 % 08/19/21 00:10 Abs Band Neuts (Man) 0.0 10^3/cmm (0.0-1.2) 08/19/21 00:10 Absolute Lymphocytes 2.3 10^3/cmm (1.2-3.4) 08/19/21 00:10 Lymphocytes (Manual) 21 % 08/19/21 00:10 Monocytes (Manual) 3.0 % 08/19/21 00:10 Absolute Monocytes 0.3 10^3/cmm (0.1-0.6) 08/19/21 00:10 Eosinophils (Manual) 4 % 08/19/21 00:10 Absolute Eosinophils 0.4 10^3/cmm (0.0-0.7) 08/19/21 00:10 Basophils (Manual) 0.0 % 08/19/21 00:10 Absolute Basophils 0.0 10^3/cmm (0.0-0.2) 08/19/21 00:10 Nucleated RBCs # 0.0 /100WBC 08/21/21 12:00 Platelet Estimate Normal (Normal) 08/19/21 00:10 Anisocytosis Trace 08/19/21 00:10 RPR Nonreactive (Nonreactive) 08/19/21 00:10 Hep Bs Antigen Non-reactive (Nonreactive) 08/19/21 00:10 HIV 1&2 Ab & HIV 1 Ag Non-reactive (Non-Reactiv) 08/19/21 00:10 HIV 1&2 Antibody Non-reactive (Non-Reactiv) 08/19/21 00:10 Rubella IgG Antibody 124.6 IU/mL (0.0-10.0) H 08/19/21 00:10 Blood Type A Positive 08/19/21 00:10 Rho(D) Type Positive 08/19/21 00:10 Antibody Screen Negative 08/19/21 00:10 Vitals Last Vital Signs Temp 98.2 F 08/21/21 11:45 Pulse 98 08/21/21 11:45 Resp 16 08/21/21 11:45 BP 124/80 08/21/21 11:45 Pulse Ox 99 08/21/21 09:15 Discharge Plan Discharge Patient Disposition: Home Condition: Stable Prescriptions: No Action No Known Home Medications 0RF Patient Instructions: Opioid Safety Discharge Attestations CLINICAL TRIALS MANAGER Time Spent in Discharge Care*: greater than 30 min Coding Level of Care Code Acute Farm Truck Driver for Barbara Javed
== END 2021-08-21 20:31 | disposition home or self-care (01) | DRG 807 ==
LOC: OPOB 08:18
PROVIDERS: Obstetrics & Gynecology; Admitting Provider Obstetrics & Gynecology; PCP Nurse Practitioner Family; Visit Provider Obstetrics & Gynecology
DX: O99.02 Anemia complicating childbirth (principal); Z37.0 Single live birth; D64.9 Anemia, unspecified; O70.0 First degree perineal laceration during delivery; Z3A.38 38 weeks gestation of pregnancy
CPT/HCPCS: 36415; 59025; 59409; 83986; 85007; 85025; 85027; 86592; 86762; 86850; 86900; 87340; 87491; 87591; 87806; 96372; 96374; 99211; J2210; J2405

== ENCOUNTER 2021-11-16 06:47 | Day surgery (SDC) | payer MEDICAID, SELFPAY ==
[2021-11-16] VITALS (10 sets, daily range): BP systolic 108–129; BP diastolic 67–83; PULSE 81–105; RESP 18–33; TEMP 36.5–37; O2SAT 94–98
--- NOTE | 2021-11-16 07:21 | ANES.PREANE2 ---
Pre-Anesthetic Assessment Height/Weight: Height 1.65 m Weight 72.575 kg Preop Diagnosis: desires permanent sterilization Operation Date: 11/16/21 08:25 Proposed Procedures p Laparoscopic bilateral salpingectomy 93377,Z30.2(Bilateral) - Lelo Hunt MD Familial anesthetic complications: None Was Beta Karely taken within 24 hours: N/A Was Clonidine taken within 24 hours: N/A Social No alcohol and No tobacco Exam alert, oriented x 3, clear to auscultation bilaterally and regular rate & rhythm Airway Submandibular: within normal limits Cervical ROM: within normal limits Mallampati: Class I Dentition: full History/ROS No significant complaints Pulmonary None reported CV/HEM None reported None reported Hepatic None reported GI None reported Metabolic None reported Musc/skel None reported Neuropsych None reported Anesthetic Plan ASA status: 1 Anesthesia: Anesthesia Evaluation and General Other: We discussed risk and benefits of general anesthesia including PONV, sore throat (sometimes severe), corneal abrasion, positioning and peripheral nerve injuries, life threatening allergic reaction, post operative ICU admission requiring prolonged intubation, stroke, heart attack, , and rare incidences of recall. Patient consents to proceed with general anesthesia. Risk of > 500 ml blood loss (7ml/kg in children): No Medications/Allergies Home Medications Medication Instructions Recorded Confirmed Last Taken Type No Known Home Medications 11/15/21 11/15/21 Unknown History Allergies Allergy/AdvReac Type Severity Reaction Status Date / Time No Known Allergies Allergy Verified 11/11/21 08:37 [facility] Anesthesia Medical History No pertinent past medical history Denies diabetes, asthma, hypertension, seizures, DVT/PE PCP: LUIS Aguillon Surgical History No history of previous surgery Family History Grandfather Hyperlipidemia maternal Hypertension maternal Stroke maternal Heart disease maternal and paternal Mother Thyroid condition Grandmother Heart disease maternal and paternal Breast cancer paternal, diagnosed at age 54 Colon cancer maternal, age at diagnosis unknown Family/Other Uterine cancer maternal aunt, diagnosed in her 30s. Treated with hysterectomy and chemo therapy. Denies family history of Ovarian cancer Diabetes Social History Smoking and tobacco status: never smoked Data Anesthesia Cardiac Studies: No Data to Display
[2021-11-16 07:29] LABS: OR HCG Qualitative Urine Negative (Negative)
[2021-11-16] MEDS: sodium chloride 0.9% 1,000 ML 30 ML IV (07:44)
[2021-11-16] MEDS: phenazopyridine 100 mg Tablet 200 MG PO (07:45)
[2021-11-16] MEDS: acetaminophen 1,000 MG/100 ML PIGGYBACK 400 MG IV (07:45)
[2021-11-16] MEDS: CELEcoxib 200 mg Capsule 400 MG PO (07:46)
[2021-11-16] MEDS: gabapentin 300 mg Capsule PO (07:48)
[2021-11-16] MEDS: scopolamine 1.5 Patch 1 PATCH TRANSDERMA (07:55)
--- NOTE | 2021-11-16 08:41 | W.PM.OPSUD ---
Surgery/Procedure H&P Update DATE OF PROCEDURE: November 16, 2021 DATE H&P PERFORMED: 11/11/21 H&P UPDATE INFORMATION: I have reviewed H&P completed within last 30 days, I have examined patient prior to procedure and No changes to prior documentation PREOP DIAGNOSIS: desires permanent sterilization PLANNED PROCEDURE: Operation Date: 11/16/21 08:25 Proposed Procedures p Laparoscopic bilateral salpingectomy 05946,Z30.2(Bilateral) - Lelo Hunt MD Related Problem List Diagnoses (1) Sterilization:
[2021-11-16] MEDS: ceFAZolin 2,000 MG in sodium chloride 0.9% (plus) 50 ML 100 MG IV (08:56)
--- NOTE | 2021-11-16 09:58 | PM.OP ---
Operative Report Date of procedure: November 16, 2021 Pre-op diagnosis: Preop Diagnosis desires permanent sterilization Post-op diagnosis: same Post-op findings: normal appearing uterus, tubes and ovaries Procedure done: laparoscopic bilateral salpingectomy Specimens removed/disposition: bilateral fallopian tubes to pathology Surgeon: Lelo Hunt Anesthesia: General Estimated blood loss (mL): 5 IV fluids (mL): 700 Urine output (mL): 300 Complications: Tiny uterine perforation with dilator. Hemostatic upon entry to the abdomen Findings: 7 week sized uterus, normal appearing uterus, tubes and ovaries Condition: stable Disposition: PACU Procedure: The patient was taken to the operating room where general anesthesia was administered and found to be adequate. She was prepped and draped in the normal sterile fashion in the dorsal lithotomy position in [facility]. A Rogers catheter was placed. A weighted speculum was placed into the vagina and the anterior lip of the cervix grasped with a single-tooth tenaculum. The cervix was dilated to 16 venezuelan. Upon placing the 10 venezuelan dilator, there was a pop feeling and I knew that I had perforated the uterus. I continued to dilate to 16 venezuelan, but was careful to not go through the previous perforation. A sponge stick was used to manipulate the uterus, so as not to enlarge the perforation. The gloves were changed and attention was turned to the laparoscopic portion of the case. A 5 mm infraumbilical incision was made. The 5 mm trocar was placed using the easy view trocar. Intra-abdominal placement was confirmed and CO2 gas was used to insufflate the abdomen. The uterus was viewed and the perforation was barely visible. Using direct visualization and illumination of the abdominal wall, two 5 mm incisions were made low and lateral. One on the left and one on the right. The 5mm trochars were then placed under direct visualization. Using the uterine manipulator and the grasper, the fallopian tubes were identified. Using the laparoscopic cautery, the fallopian tube was clamped cauterized and cut. First on the right, then on the left. There was excellent hemostasis post removal of the bilateral tubes. Pictures were taken. All instruments were removed. The abdomen was desufflated. The incisions were closed with 4-0 Vicryl. 10 ml of 1/2% bupivicaine was used around the incisions. The patient tolerated the procedure well. Sponge lap and needle counts were correct x3. She was taken to the recovery room in stable condition.
--- NOTE | 2021-11-16 10:14 | PM.DCS ---
Discharge Providers Date of Admission: 11/16/21 Date of Discharge: November 16, 2021 Attending Provider at Discharge: Lelo Hunt MD Primary Care Provider: LUIS Dorsey Diagnoses at Discharge Discharge Diagnosis (1) Sterilization: Status: Acute Hospital Course Hospital Course The patient was admitted for surgery. She did well postoperatively. She had #30 hydrocodone sent to her pharmacy. She was discharged home in stable condition. Physical Exam Urinary Catheter Management: Rogers: Cath Placed During This Visit: yes, but has since been removed by the nurse Urinary Catheter Date of Insertion: 11/16/21 Urinary Catheter Time of Insertion: 09:26 Date Urinary Catheter Removed: 11/16/21 Time Urinary Catheter Discontinued: 09:48 Discharge Data Studies Completed and Pending Pending at discharge Category Date Time Status ES surgery / GI images Routine Exams 11/16/21 08:48 Taken Urine Culture Routine Lab 11/16/21 09:26 Received Pathology: Surgical [PTH] Routine Pth 11/16/21 10:08 Ordered Laboratory Results Urine HCG, Qual Negative (Negative) 11/16/21 07:28 Vitals Last Vital Signs Temp 97.9 F 11/16/21 07:22 Pulse 90 11/16/21 07:22 Resp 18 11/16/21 07:22 BP 129/82 11/16/21 07:22 Pulse Ox 96 11/16/21 07:22 O2 Del Method 11/16/21 07:25 O2 Flow Rate 6 11/16/21 10:02 Discharge Plan Discharge Patient Disposition: Home Condition: Stable Prescriptions: New hydrocodone-acetaminophen 5-325 mg tablet 1 tab PO Q4H PRN (Reason: pain) Qty: 30 0RF Discharge Orders: Discharge Order (Routine); Ordered 11/16/21 Ordered By: Lelo Hunt Discharge Attestations Time Spent in Discharge Care*: less than 30 min Quality Metrics Clinical Quality Measures [ No reported AMI, CVA or VTE this stay] Coding Level of Care Code Acute Chg FW DC note Diagnoses Sterilization Z30.2
[2021-11-16] MEDS: HYDROcodone-acetaminophen 5-325 mg Tablet 1 TAB PO (11:00)
--- NOTE | 2021-11-16 12:33 | ANE.PACU2 ---
Inpatient post-anesthesia follow up: Airway intact: Yes Vital signs: Temperature 97.7 F Pulse Rate 83 Respiratory Rate 18 Blood Pressure 109/72 Pulse Oximetry 94 Oxygen Delivery Me thod Room Air Oxygen Flow Rate 6 Fraction of Inspir ed Oxygen Hydration adequate: Yes Nausea and vomiting: No Pain level: 1 Mental status: Baseline
== END 2021-11-16 11:29 | disposition home or self-care (01) ==
PROVIDERS: PCP Nurse Practitioner Family; Visit Provider Obstetrics & Gynecology
PROC: (CPT 58661; principal; 2021-11-16 08:15)
DX: Z30.2 Encounter for sterilization (principal)
CPT/HCPCS: 58661; 81025; 84703; 87086; 88302; J1100; J1200; J2250; J2405; J2704; J3010; J3490; J7030

== ENCOUNTER 2023-12-26 18:38 | Emergency (ER) | payer SELFPAY ==
[2023-12-26 18:40] VITALS: BMI 27.4
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
[2023-12-26 18:46] VITALS: BP 119/82; PULSE 95; RESP 18; TEMP 36.7; O2SAT 100
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
[2023-12-26 19:16] VITALS: BP 118/72; PULSE 89; RESP 18; O2SAT 97
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
[2023-12-26 19:30] VITALS: RESP 16
[2023-12-26] MEDS: morphine 4 mg/mL SDV 1 mL IVP (19:30)
[2023-12-26] MEDS: HYDROcodone-acetaminophen 5-325 mg Tablet 2 TAB PO (20:15)
[2023-12-26] MEDS: bacitracin ointment Pkt 1 EACH TOPICAL (20:16)
[2023-12-26 20:19] VITALS: BP 112/57; PULSE 95; RESP 16; O2SAT 100
== END 2023-12-26 20:20 | disposition home or self-care (01) ==
PROVIDERS: Emergency Provider Emergency Medicine; PCP Nurse Practitioner Family
DX: S50.812A Abrasion of left forearm, initial encounter (principal); R68.84 Jaw pain; V43.53XA Car driver injured in collision with pick-up truck in traffic accident, initial encounter; Y92.410 Unspecified street and highway as the place of occurrence of the external cause
CPT/HCPCS: 70486; 73090; 96374; 99285; J2270

== ENCOUNTER 2024-04-26 08:00 | Outpatient (CLI) | payer BC, MEDICAID, SELFPAY ==
--- NOTE | 2024-04-26 08:03 | US_ITS ---
WS: [id number] US pelv w/transvag [id number] HISTORY: pain COMPARISON: None available. Uterus: 7.1 cm x 5.2 cm x 5.0 cm. Low normal size retroverted uterus. No fibroid identified. Endometrium: 1.2 cm. Normal. Right ovary: 2.5 cm x 2.4 cm x 1.8 cm. Normal size and vascularity, no cystic or solid masses. Malka us small follicles. No cyst or solid mass. Left ovary: 2.9 cm x 1.9 cm x 1.3 cm. Normal size and vascularity, no cystic or solid masses. Numerou s small follicles. No cyst or solid mass. No free fluid in the cul-de-sac. US/US pelv w/transvag [id number] IMPRESSION: 1. Normal size uterus and endometrium. 2. Multiple small ovarian follicles but no cyst or mass.
--- NOTE | 2024-04-26 08:03 | US_ITS ---
WS: [id number] Complete ABDOMINAL ULTRASOUND HISTORY: pain COMPARISON: 01/14/2009 Liver: 16.6 cm in length. Normal size liver and echogenicity. No bile duct dilatation or mass. Portal Vein: Normal hepatopetal flow with monophasic waveform. Gallbladder: Normally distended gallbladder with no stones or wall thickening. CBD: 0.4 cm Pancreas: Normal size and echogenicity. Right kidney: 10.3 cm x 4.9 x 4.9 cm. Cortex:1.0 cm. Normal size and echogenicity. No hydronephrosis or mass. Left kidney: 11.7 cm x 4.5 cm x 5.2 cm. Cortex: 1.1 cm. Normal size and echogenicity. No hydronephrosis or mass. Spleen: 11.8 cm. Normal size and echogenicity. Aorta and IVC: Unremarkable abdominal aorta and IVC. US/US abdomen complete* [id number] Impression: Normal complete abdomen ultrasound.
== END 2024-04-26 08:01 | disposition home or self-care (01) ==
LOC: RAD 08:00
PROVIDERS: PCP Nurse Practitioner Family; Visit Provider Nurse Practitioner Family
DX: R10.2 Pelvic and perineal pain (principal)
CPT/HCPCS: 76700; 76830; 76856

== ENCOUNTER 2024-08-19 16:10 | Emergency (ER) | payer BC, MEDICAID, SELFPAY ==
[2024-08-19 16:14] VITALS: BP 117/81; PULSE 84; TEMP 36.8; O2SAT 99
--- NOTE | 2024-08-19 16:21 | ECG_ITS ---
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
--- NOTE | 2024-08-19 16:27 | ED_ITS ---
HPI - Dizziness 2 General: Chief Complaint: Dizziness Stated Complaint: dizzy, feels like she could pass out Time Seen by Provider: 08/19/24 16:23 Source: patient Mode of arrival: ambulatory Limitations: no limitations History of Present Illness: HPI Narrative: 24-year-old female who states that she h as been having lightheadedness or syncopal events going on for 2 months. She denies any worsening. Fact states they are just random she denies any headaches denies any chest pain states she has seen her PCP for it and they are unable to figure out what is causing it. Associated symptoms: Denies chest pain, chills, headache(s), nausea or vomiting Related Data Home Medications ?Medication ?Instructions ?Recorded ?Confirmed No Known Home Medications 11/25/2104/17 Previous Rx's ?Medication ?Instructions ?Recorded hydrocodone 5 mg-acetaminophen 325 1 tab PO Q6H PRN pa in #14 tabs 12/26/23 mg tablet Allergies Allergy/AdvReac Type Severity Reaction Status Date / Time No Known Allergies Allergy Verified 08/19/24 16:19 Review of Systems 2 Const: Denies: fever(s), chills, body aches or change in appetite Eyes: Denies: blurry vision or eye discomfort ENMT: Denies: throat pain or dental pain Card: Reports: pre-syncope; Denies: chest pain Resp: Denies: dyspnea GI: Denies: abdominal pain, nausea, vomiting or diarrhea Musc: Denies: neck pain or back pain Skin/Breast: Denies: rash Neuro: Denies: headache(s) PFSH ED 2 PFSH: Medical History Sterilization No pertinent past medical history Denies diabetes, asthma, hypertension, seizures, DVT/PE PCP: LUIS Aguillon Surgical History H/O tubal ligation (~10/2021) No history of previous surgery Family History Grandfather Hyperlipidemia maternal Hypertension maternal Stroke maternal Heart disease maternal and paternal Mother Thyroid disease Grandmother Heart disease maternal and paternal Breast cancer paternal, diagnosed at age 54 Colon cancer maternal, age at diagnosis unknown Family/Other Uterine cancer maternal aunt, diagnosed in her 30s. Treated with hysterectomy and chemo therapy. Denies family history of Ovarian cancer Diabetes Social History Smoking and tobacco/nicotine status: never used tobacco/nicotine Physical Exam 2 Const: COMMON NORMALS: no acute distress, patient oriented x3 and healthy appearing HENMT: COMMON NORMALS: normocephalic and atraumatic HEAD & SCALP: n ormocephalic and atraumatic Neck/C-Spine: COMMON NORMALS: full ROM and supple Chest: COMMONS NORMALS: normal inspection of the chest Resp: COMMON NORMALS: normal respiratory effort, No retractions, No use of accessory muscles and clear to auscultation bilaterally AUSCULTATION: clear to auscultation bilaterally Cardio: COMMON NORMALS: regular rate, regular rhythm and No murmurs present (Cardio) RATE: regular rate RHYTHM: regular rhythm Extremity: COMMON NORMALS: normal to inspection and full ROM Neuro: COMMON NORMALS: patient oriented x3, moves all extremities and no focal motor deficits Psych: COMMON NORMALS: mental status grossly normal, Normal thought process present and cooperative THOUGHT PROCESS: Normal thought process present Skin: COMMON NORMALS: no rashes or lesions noted and no wounds GENERAL SKIN EXAM: no rashes or lesions noted Course 2 Vital Signs: Vital signs: Vital Signs Temperature 98.2 F 08/19/24 16:14 Pulse Rate 82 08/19/24 17:15 Respiratory Rate 16 08/19/24 17:15 Blood Pressure 109/78 08/19/24 17:15 Pulse Oximetry 98 08/19/24 17:15 Oxygen Delivery Me thod Room Air 08/19/24 16:14 MDM - Dizziness Medical Decision Making Patient presents here with a near syncopal event blood work imaging here is all normal she has been well-appearing here she stable for discharge follow-up with PCP return if worsening. Medical Records I reviewed the patient's medical records. Lab Data I reviewed the patient's lab results. 08/19/24 17:11 08/19/24 17:[address] 08/19/24 16:27 IMPRESSION: No acute intracranial abnormality. Chest X-Ray 08/19/24 16:46 IMPRESSION: No acute findings. Laboratory Results WBC 5.74 10^3/uL (3.29-11.43) 08/19/24 17:11 RBC 4.87 10^6/uL (3.85-5.65) 08/19/24 17:11 Hgb 12.20 g/dL (11.27-16.99) 08/19/24 17:11 Hct 38.9 % (36-47) 08/19/24 17:11 MCV 79.9 fl (85-98) L 08/19/24 17:11 MCH 25.1 pg (27-33) L 08/19/24 17:11 MCHC 31.4 g/dL (30-55) 08/19/24 17:11 RDW 15.3 % (12.1-15.1) H 08/19/24 17:11 Plt Count 283 10^3/cmm (157-399) 08/19/24 17:11 MPV 12.5 fL (7.4-10.4) H 08/19/24 17:11 Neut % (Auto) 58.0 % 08/19/24 17:11 Lymph % (Auto) 34.0 % 08/19/24 17:11 Tucker % (Auto) 6.3 % 08/19/24 17:11 Eos % (Auto) 1.0 % 08/19/24 17:11 Baso % (Auto) 0.5 % 08/19/24 17:11 Neut # (Auto) 3.33 10^3/uL (1.8-7.7) 08/19/24 17:11 Lymph # (Auto) 2.0 10^3/uL (0.8-4.8) 08/19/24 17:11 Tucker # (Auto) 0.4 10^3/uL (0.2-0.9) 08/19/24 17:11 Eos # (Auto) 0.1 10^3/uL (0.0-0.8) 08/19/24 17:11 Baso # (Auto) 0.0 10^3/uL (0.0-0.1) 08/19/24 17:11 Nucleated RBC % (auto) 0 % 08/19/24 17:11 Nucleated RBCs # 0.0 /100WBC 08/19/24 17:11 Sodium 142 mmol/L (136-145) 08/19/24 17:11 Potassium 4.1 mmol/L (3.5-5.1) 08/19/24 17:11 Chloride 107 mmol/L (98-107) 08/19/24 17:11 Carbon Dioxide 21 mmol/L (22-29) L 08/19/24 17:11 Anion Gap 18.1 (5-19) 08/19/24 17:11 BUN 10 mg/dL (6-20) 08/19/24 17:11 Creatinine 0.7 mg/dL (0.5-0.9) 08/19/24 17:11 GFR Calculation 102.0 mL/min (90-130) 08/19/24 17:11 Glucose 112 mg/dL (65-115) 08/19/24 17:11 Calculated Osmolality 294 mOsm/kg (285-295) 08/19/24 17:11 Calcium 8.9 mg/dL (8.5-10.5) 08/19/24 17:11 Total Bilirubin 0.2 mg/dL (0.15-1.2) 08/19/24 17:11 AST 18 U/L (0-32) 08/19/24 17:11 ALT 14 U/L (0-33) 08/19/24 17:11 Alkaline Phosphatase 57 U/L (35-105) 08/19/24 17:11 Total Protein 6.7 g/dL (6.6-8.7) 08/19/24 17:11 Albumin 4.0 g/dL (3.5-5.2) 08/19/24 17:11 Globulin 2.7 g/dL (1.3-4.6) 08/19/24 17:11 HCG, Qual Negative (Negative) 08/19/24 17:11 All radiology interpretation(s) finalized by discharge EKG Data EKG 1: I personally reviewed and interpreted this EKG as follows: EKG interpretation date: 08/19/24 EKG interpretation time: 16:21 Interpretation: nsr hr [address] elevation qrs 92 qtc 397 Discharge Plan Discharge Patient Disposition: Home Clinical Impression: Near syncope Condition: Stable Prescriptions: No Action No Known Home Medications hydrocodone-acetaminophen 5-325 mg tablet 1 tab PO Q6H PRN (Reason: pain) Qty: 14 0RF Discharge Orders: Discharge ED (Routine); Ordered 08/19/24 Ordered By: Beverly Talbert Referrals: Fely Soto, DERMATOLOGY SPECIALIST [Primary Care Provider, Family Practice] Discharge Diet: Advance as tolerated Discharge Activity: Resume usual activity Patient Instructions: Near Syncope (ED) Print Language: Malian Coding Level of Care Code ED Instructor Correspondence School for Barbara Javed
--- NOTE | 2024-08-19 16:27 | CTR_ITS ---
PROCEDURE INFORMATION: Exam: CT Head Without Contrast Exam date and time: 08/19/2024 4:38 PM Age: 24 years old Clinical indication: Dizziness; Additional info: Near syncope TECHNIQUE: Imaging protocol: Computed tomography of the head without contrast. Radiation optimization: All CT scans at this facility use at least one of these dose optimization techniques: automated exposure control; mA and/or kV adjustment per patient size (includes targeted exams where dose is matched to clinical indication); or iterative reconstruction. COMPARISON: CT facial bones wo con* [id number] 12/26/2023 6:59 PM RADIATION DOSE METRICS: Total DLP (mGy-cm): 958.58 FINDINGS: Brain: Normal. No hemorrhage. Unremarkable white matter. No mass effect. Cerebral ventricles: No ventriculomegaly. Paranasal sinuses: Visualized sinuses are unremarkable. No fluid levels. Mastoid air cells: Visualized mastoid air cells are well aerated. Bones: Unremarkable. No acute fracture. Soft tissues: Unremarkable. CT/CT head wo con* [id number] IMPRESSION: No acute intracranial abnormality.
--- NOTE | 2024-08-19 16:46 | XRR_ITS ---
PROCEDURE INFORMATION: Exam: XR Chest Exam date and time: 08/19/2024 4:51 PM Age: 24 years old Clinical indication: Other: Dizzy; Additional info: Near syncope TECHNIQUE: Imaging protocol: Radiologic exam of the chest. Views: 1 view. COMPARISON: CR XR chest 1V portable [id number] 05/27/2021 6:51 PM FINDINGS: Lungs: Unremarkable. No consolidation. Pleural spaces: Unremarkable. No pleural effusion. No pneumothorax. Heart/Mediastinum: Unremarkable. No cardiomegaly. Bones/joints: Unremarkable. XR/XR chest 1V portable [id number] IMPRESSION: No acute findings.
[2024-08-19 17:15] VITALS: BP 109/78; PULSE 82; RESP 16; O2SAT 98
[2024-08-19 17:18] LABS: Basophils % 0.5 %; Eosinophils # 0.1 10^3/uL (0.0-0.8); Hematocrit 38.9 % (36-47); Mean Corpuscular HGB Conc 31.4 g/dL (30-55); Mean Corpuscular Hemoglobin 25.1 pg (27-33); Mean Corpuscular Volume 79.9 fl (85-98); Mean Platelet Volume 12.5 fL (7.4-10.4); Monocytes # 0.4 10^3/uL (0.2-0.9); Monocytes % 6.3 %; Neutrophils # 3.33 10^3/uL (1.8-7.7); Nucleated Red Blood Cells % 0 %; Platelet Count 283 10^3/cmm (157-399); Red Blood Count 4.87 10^6/uL (3.85-5.65); Red Cell Distribution Width 15.3 % (12.1-15.1); White Blood Count 5.74 10^3/uL (3.29-11.43)
[2024-08-19 17:28] LABS: HCG, Serum Qual Negative (Negative)
[2024-08-19 17:37] LABS: Alanine Aminotransferase 14 U/L (0-33); Alkaline Phosphatase 57 U/L (35-105); Aspartate Amino Transferase 18 U/L (0-32); Blood Urea Nitrogen 10 mg/dL (6-20); Calcium 8.9 mg/dL (8.5-10.5); Carbon Dioxide 21 mmol/L (22-29); Chloride 107 mmol/L (98-107); Globulin 2.7 g/dL (1.3-4.6); Glucose 112 mg/dL (65-115); Osmolality Calculated 294 mOsm/kg (285-295); Sodium 142 mmol/L (136-145); Total Bilirubin 0.2 mg/dL (0.15-1.2); Total Protein 6.7 g/dL (6.6-8.7)
[2024-08-19 17:42] LABS: Anion Gap 18.1 (5-19); Potassium 4.1 mmol/L (3.5-5.1)
[2024-08-19 18:16] VITALS: BP 103/73; PULSE 98; O2SAT 99
== END 2024-08-19 18:17 | disposition home or self-care (01) ==
PROVIDERS: Emergency Provider Emergency Medicine; PCP Nurse Practitioner Family
DX: R55 Syncope and collapse (principal)
CPT/HCPCS: 70450; 71045; 80053; 84703; 85025; 93005; 99285

== ENCOUNTER 2025-01-23 17:00 | Emergency (ER) | payer BC, MEDICAID, SELFPAY ==
[2025-01-23 17:03] VITALS: BP 108/73; PULSE 86; TEMP 36.8; O2SAT 100; BMI 28.3
--- OUTSIDE RECORDS SUMMARY | 2025-01-23 17:04 | XMS_ITS | Clinical Summary ---
Author Organization [facility] Address [address] [place] [address] Care Team Providers Care Detective Lieutenant Name Role Phone Reji Spain MD Primary Care Provider Allergies No known active allergies Medications SUMAtriptan (Imitrex) 100 mg tabletIndicatio ns:Migraine without status migrainosus, not intractable, unspecified migraine type Take 0.5-1 Tablets (50-100 mg) by mouth see administration instructions. At earliest onset of migraine. may repeat in 2 hours; max dose 200mg in 24 hours 12 Tablet 2 12/28/19 23 Active Additional Information Patient not taking.Reported on 06/25/2024 ferrous sulfate 325 mg (65 mg iron) tablet Take 1 Tablet (325 mg) by mouth daily. 100 Tablet 1 12/29/19 23 Active Additional Information Patient not taking.Reported on 06/25/2024 multivitamin (DAILY-SAFIA) tablet Take 1 Tablet by mouth daily. Active venlafaxine (EFFEXOR XR) 75 mg Extended Release 24 hour capsuleIndicati ons:Stress at home,Mood change Take 1 Capsule (75 mg) by mouth daily. 30 Capsule 11 06/26/19 25 Active Active Problems Problem Noted Date Diagnosed Date Migraine without status migrainosus, not intract able 12/27/2022 Sleep disturbance 12/27/2022 Condyloma acuminata of vulva in in second trimester 12/05/2017 Supervision of normal 09/12/2017 Pharyngitis 10/21/2013 Well child visit 11/19/2012 Stress at home 07/17/2012 Mood change 07/17/2012 Family circumstance 07/17/2012 Acne 03/29/2012 Allergic rhinitis 03/29/2012 Encounters Date Type Department Care Team Description 01/14/2025 External Device Data [facility] ABSTRACTION Provider, Abstract 12/10/2024 External Device Data [facility] ABSTRACTION Provider, Abstract from Last 3 Months Immunizations Immunization Administration Dates Next Due (M-M-R II/PRIORIX)(12 MO UP) MEASLES, MUMPS AND RUBELLA VIRUS VACCINE, 0.5 ML IM/SUBCUT 07/30/2004,05/26/2000 (VARIVAX)(12 MOS UP)VARICELL A VIRUS VACCINE (PF) 0.5 ML, SUB CUT 07/31/2002 Dt Dtp Dtap Vaccine 07/30/2004, 3,1999,1999,1999 HIB, Unspecified Formulation 07/31/2002, 1999,1999,1999 Hepatitis B Vaccine 02/23/2000,1999,1999 IPV/OPV 07/30/2004, 3,1999,1999 Influenza Seasonal Unspecifi ed Formulation IM 02/11/2003 Influenza Vaccine Split 3+ Yrs IM VFC 03/29/2012 Tdap Vaccine > 7 Yo IM VFC 11/19/2012 Family History Medical History Relation Name Comments Healthy Brother 1 Healthy Brother 2 Healthy Brother 3 Healthy Father Healthy Maternal Grandfather Healthy Maternal Grandmother Healthy Mother Healthy Paternal Grandfather Healthy Paternal Grandmother Healthy Sister 1 Healthy Sister 2 Healthy Sister 3 Healthy Sister 4 Healthy Sister 5 Healthy Son Relation Name Status Comments Brother 1 Alive Brother 2 Alive Brother 3 Alive Father Alive Maternal Grandfather Alive Maternal Grandmother Alive Mother Alive Paternal Grandfather Alive Paternal Grandmother Alive Sister 1 Alive Sister 2 Alive Sister 3 Alive Sister 4 Alive Sister 5 Alive Son Alive Social History Tobacco Use Types Packs/Day Years Used Date Smoking Tobacco: Never Smokeless Tobacco: Never Tobacco Cessation:Counseling Given: Not Answered Alcohol Use Standard Drinks/Week Comments No 0 (1 standard drink = 0.6 oz pur e alcohol) Comments No Sex and Gender Information Value Date Recorded Sex Assigned at Not on file Legal Sex Female 3:[address]GE Gender Identity Not on file Sexual Orientation Not on file Last Filed Vital Signs Vital Sign Reading Time Taken Comments Blood Pressure 116/78 06/25/2024 1:10 PM CDT Pulse 91 06/25/2024 1:10 PM CDT Temperature 36.6 C (97.9 F) 06/25/2024 1:10 PM CDT Respiratory Rate 21 06/25/2024 1:10 PM CDT Oxygen Saturation 99% 06/25/2024 1:10 PM CDT Inhaled Oxygen Concentration - - Weight 68.3 kg (150 lb 9.6 oz) 06/25/2024 1:10 P M CDT Height 162.6 cm (5' 4 ) 06/25/2024 1:10 PM CDT Body Mass Index 25.85 06/25/2024 1:10 PM CDT Plan of Treatment Upcoming Encounters Date Type Department Care Team (Late st Contact Info) Description 04/03/2025 8:[address] JUDGE Office Visit [facility] [address] [place] [phone] Fely Soto, [facility] [address] [phone] Health Maintenance Due Date Last Done Comments HPV VACCINES (1 - 3-dose series) 2014 DTAP/TDAP/TD VACCINES (7 - T d or Tdap) 11/19/2022 11/19/2012, 07/30/2004, 07/31/2002, Additional history exists INFLUENZA VACCINE (#1) 2024 03/29/2012, 2002 Preventative Visit-Managed Medicaid 04/04/2025 04/03/2024, 07/15/2020, 11/19/2012 CERVICAL CANCER SCREENING 04/03/2027 PAP SMEAR 04/03/2027 04/03/2024, 0403/2020, 07/15/2020 HPV/Cotest (21-29) 04/03/2029 04/03/2024, 07/15/2020 HPV/Cotest (30-65) 2029 04/03/2024, 07/15/2020 HEPATITIS B VACCINES Completed 02/23/2000, 1999, 1999 CHLAMYDIA SCREENING (ANNUAL) 11-24 YEARS Discontinued 04/03/2024, 02/10/2021, 07/15/2020, Additional history exists Procedures Procedure Name Priority Date/Time Associated Diagnosis Comments GC/CHLAMYDIA, UROGENITAL Routine 04/03/2024 10:[address] JUDGE Encounter for surveillance of other contraceptive Screening for malignant neoplasm of cervix CERV/VAG CYTO SCREEN PAP RLFX HPV Routine 04/03/2024 10:[address] JUDGE Encounter for surveillance of other contraceptive Screening for malignant neoplasm of cervix from Last 3 Months or Most Recently Relevant to Health Maintenance Results * GC/CHLAMYDIA, UROGENITAL (04/03/2024 10:[address] JUDGE) CHLAMYDIA TRACHOMATIS RNA, TMA, UROGENITAL NOT DETECTED NOT DETECTED [facility] [place] NEISSERIA GONORRHOEAE RNA, TMA, UROGENITAL NOT DETECTED NOT DETECTED [facility] [place] COMMENT INFECTIOUS DISEASE [facility] [place] Comment: The analytical performance characteristics of this assay, when used to test SurePath(TM) specimens have been determined by [facility]. The modifications have not been cleared or approved by the FDA. This assay has been validated pursuant to the CLIA regulations and is used for clinical purposes. For additional information, please refer to https://education.ILD Teleservices/faq/CTX991 (This link is being provided for information/ educational purposes only.) Test Performed at: [facility] [id number] [place] [address] Chilo Johnson MD Genital SWAB OF ENDOCERVIX / Unknown 04/03/2024 10:[address] JUDGE 04/04/2024 4:[address] JUDGE us Fely Soto RAFTSMAN MICROBIOLOGY - GENERAL ORDERA BLES Final Result [facility] [phone] [facility] [address] [facility] [place] [phone] * (ABNORMAL) CERV/VAG CYTO SCREEN PAP RLFX HPV (04/03/2024 10:[address] JUDGE) CLINICAL INFORMATION Jt [facility] Comment:SCREENING LAST MENSTRUAL PERIOD Jt Vega Comment:[id number] PREV PAP: Jt Vega Comment:NONE GIVEN PREV BX: Jt Vega Comment:NONE GIVEN SOURCE Jt Vega Comment:ENDOCERVIX ADEQUACY: Jt Vega Comment: Satisfactory for evaluation. Endocervical/transformation zone component present. GENERAL CATEGORIZATION: (A) Jt Vega Comment:Cytology Results: Ep ithelial Cell Abnormality PAP INTERP (A) Jt Vega Comment:Low Grade Squamous I ntraepithelial Lesion (LSIL) CYTOLOGY INFECTION Q braydon Vega Comment: Shift in vaginal abe suggestive of bacterial vaginosis. COMMENT (PAP TEST) Q braydon Vega Comment: This Pap test has been evaluated with computer assisted technology. Suggest clinical correlation and follow-up as clinically appropriate CIVIL DRAFTSMAN: Kaye Vega Comment: KMS, CT(ASCP) CT Screening location: [place] [address] [address] SAM[address] Ching [address] PATHOLOGIST [facility] Comment: Shadi Abreu M.D., Board Certified in Anatomic Pathology and Cytopathology. (electronic signature) EXPLANATORY NOTE Que st Hanh Vega Comment: EXPLANATORY NOTE: The Pap is a screening test for cervical cancer. It is not a diagnostic test and is subject to false negative and false positive results. It is most reliable when a satisfactory sample, regularly obtained, is submitted with relevant clinical findings and history, and when the Pap result is evaluated along with historic and current clinical information. Test Performed at: [facility] [place] [address] [address] [place] [address] Chilo May Vo Genital SWAB OF ENDOCERVIX / Unknown 04/03/2024 10:[address] JUDGE 04/04/2024 4:[address] JUDGE Fely Soto RAFTSMAN PATHOLOGY/CYTOLOGY ORDERABLES Final Result [facility] [phone] [place] [address] [place] [phone] from Last 3 Months or Most Recently Relevant to Health Maintenance Insurance [facility] MEDICAID Care Teams Detective Lieutenant Relationship Specialty Start Date End Date Reji Spain MD [address] [place] [phone] PCP - General Family Practice 06/26/24
--- OUTSIDE RECORDS SUMMARY | 2025-01-23 17:05 | XMS_ITS | Encounter Summary ---
Author Organization [facility] Address [address] [place] [address] Care Team Providers Care Collision Technician Name Role Phone Reji Spain MD Primary Care Provider [phone] Encounter Details Date Type Department Care Team (Late st Contact Info) Description 01/14/2025 External Device Data [facility] ABSTRACTION Provider, Abstract NO ADDRESS ON FILE Social History Tobacco Use Types Packs/Day Years Used Date Smoking Tobacco: Never Smokeless Tobacco: Never Alcohol Use Standard Drinks/Week Comments No 0 (1 standard drink = 0.6 oz pur e alcohol) Comments No Sex and Gender Information Value Date Recorded Sex Assigned at Not on file Legal Sex Female 3:10 PM GEOTECHNICAL INTERN Gender Identity Not on file Sexual Orientation Not on file documented as of this encounter Plan of Treatment Upcoming Encounters Date Type Department Care Team (Late st Contact Info) Description 04/03/2025 8:00 AM GEOTECHNICAL INTERN Office Visit [facility] [address] [phone] Fely Soto, [facility] [address] [phone] documented as of this encounter Visit Diagnoses Not on filedocumented in this encounter Additional Health Concerns Assessment Noted Time PHQ-9 Depression Total Score: 2 04/03/19 25 8:56 AM GEOTECHNICAL INTERN documented as of this encounter Care Teams Collision Technician Relationship Specialty Start Date End Date Reji Spain MD [address] [place] [address] SAMANTHA Matute [phone] PCP - General Family Practice 06/26/24 documented as of this encounter
--- OUTSIDE RECORDS SUMMARY | 2025-01-23 17:05 | XMS_ITS | Encounter Summary ---
Author Organization [facility] Address [address] [place] [address] Care Team Providers Care Project Management Intern Name Role Phone Reji Spain MD Primary Care Provider [phone] Encounter Details Date Type Department Care Team (Late Contact Info) Description 04/10/2024 Results Follow-Up [facility] Medicine [address] [phone] Celeste [place] LPN TSH REFLEXIVE, VITAMIN D 25 HYDROXY, CBC WITH DIFFERENTIAL, Additional followed-up results: 8 Social History Tobacco Use Types Packs/Day Years Used Date Smoking Tobacco: Never Smokeless Tobacco: Never Alcohol Use Standard Drinks/Week Comments No 0 (1 standard drink = 0.6 oz pur e alcohol) Comments No Sex and Gender Information Value Date Recorded Sex Assigned at Not on file Legal Sex Female 3:10 PM RIVET HOLE MACHINE OPERATOR Gender Identity Not on file Sexual Orientation Not on file documented as of this encounter Miscellaneous Notes * Result Encounter Note - Celeste Washington LPN - 04/10/2024 8:28 AM CST Seen by patient uEn Rm on 04/09/2024 5:54 PM .Celeste Washington LPN, 04/10/2024 8:28 AM T HOLE MACHINE OPERATOR documented in this encounter Plan of Treatment Upcoming Encounters Date Type Department Care Team (Late Contact Info) Description 04/03/2025 8:00 AM RIVET HOLE MACHINE OPERATOR Office Visit [facility] [address] [place] [phone] Fely Soto, CONCRETE TECHNICIAN [address] [place] [phone] documented as of this encounter Visit Diagnoses Not on filedocumented in this encounter Additional Health Concerns Assessment Noted Time PHQ-9 Depression Total Score: 2 04/03/19 8:56 AM RIVET HOLE MACHINE OPERATOR documented as of this encounter Care Teams Project Management Intern Relationship Specialty Start Date End Date Reji Spain MD [address] [place] [phone] PCP - General Family Practice 06/26/24 documented as of this encounter
--- OUTSIDE RECORDS SUMMARY | 2025-01-23 17:05 | XMS_ITS | Encounter Summary ---
Author Organization [facility] Address [address] [place] [address] Care Team Providers Care Motor Patrol Operator Name Role Phone Reji Spain MD Primary Care Provider Encounter Details Date Type Department Care Team (Late Contact Info) Description 06/03/2024 Lab Requisition [facility] [address] [place] [address] [place] [phone] Andres Elliott MD [address] [place] [address] Social History Tobacco Use Types Packs/Day Years Used Date Smoking Tobacco: Never Smokeless Tobacco: Never Alcohol Use Standard Drinks/Week Comments No 0 (1 standard drink = 0.6 oz pur e alcohol) Comments No Sex and Gender Information Value Date Recorded Sex Assigned at Not on file Legal Sex Female 3:10 PM MARKETING PLANNER Gender Identity Not on file Sexual Orientation Not on file documented as of this encounter Plan of Treatment Upcoming Encounters Date Type Department Care Team ([facility] Contact Info) Description 04/03/2025 8:00 AM MARKETING PLANNER Office Visit [facility] Medicine [address] [phone] Fely Soto, LUIS [address] [phone] documented as of this encounter Procedures Procedure Name Priority Date/Time Associated Diagnosis Comments HEMOGLOBIN A1C Routine 06/03/2024 4:00 AM CDT LIPID PANEL Routine 06/03/2024 4:00 AM CDT documented in this encounter Results * HEMOGLOBIN A1C (06/03/2024 4:00 AM CDT) HEMOGLOBIN A1C 5.3 <=5.6 % 06/03/2024 7:36 AM CDT [facility] EST. AVG GLUCOSE, A1C 105 mg/dL 06/03/2024 7:36 AM CDT [facility] Blood 06/03/2024 4:00 AM CDT 06/03/2024 5:54 AM CDT Narrative [facility] - 06/03/2024 7:36 AM CDT HGB A1C INTERPRETATION NORMAL: <5.7% PRE-DIABETES: 5.7 - 6.4% DIABETES: 6.5% OR GREATER us Andres Elliott MD CHEMISTRY ORDERABLES Final Res ult [facility] [id number] [address] [place] [address] * (ABNORMAL) LIPID PANEL (06/03/2024 4:00 AM CDT) CHOLESTEROL 121 <200 mg/dL 06/03/2024 7:25 AM CDT [facility] TRIGLYCERIDE 58 <150 mg/dL 06/03/2024 7:25 AM CDT [facility] HDL 36(L) 40 - 59 mg/dL 06/03/2024 7:25 AM CDT [facility] LDL CALCULATED 73 <100 mg/dL 06/03/2024 7:25 AM CDT [facility] NON-HDL CHOLESTEROL 85 <130 mg/dL 06/03/2024 7:25 AM CDT [facility] Blood Venipuncture / Unknown 06/03/2024 4:00 AM CDT 06/03/2024 5:54 AM CDT Narrative [facility] - 06/03/2024 7:25 AM CDT TOTAL CHOLESTEROL mg/dL Desirable <200 Borderline high 200-239 High >=240 TRIGLYCERIDES mg/dL Normal <150 Borderline high 150-199 High 200-499 Very high >=500 HDL CHOLESTEROL mg/dL Low <40 Normal 40-59 Desirable >=60 NON HDL CHOLESTEROL mg/dL Optimal <130 Near Optimal 130-159 Borderline High 160-189 Very High >=190 CALCULATED LDL mg/dL LDL <70, OPTIMAL if have Atherosclerotic cardiovascular disease (ASCVD) or intermediate or higher (>7.5%) 10 year risk of ASCVD including most adults with diabetes. LDL <100, Optimal in adult patients with low (<7.5%) 10 year ASCVD risk LDL 100-160, Suboptimal LDL >160, High LDL >190, Very high LDL calculated using the Friedewald equation. ATPIII Guidelines Reference Ranges for Lipid Panels (NCEP/AMA) . us Andres Elliott MD CHEMISTRY ORDERABLES Final Res ult [facility] [id number] [facility] [place] [address] documented in this encounter Visit Diagnoses Not on filedocumented in this encounter Additional Health Concerns Assessment Noted Time PHQ-9 Depression Total Score: 2 04/03/19 25 8:56 AM MARKETING PLANNER documented as of this encounter Care Teams Motor Patrol Operator Relationship Specialty Start Date End Date Reji Spain MD [address] [place] [phone] PCP - General Family Practice 06/26/24 documented as of this encounter
[2025-01-23 18:32] LABS: Glucose Urine UA Negative (Normal); Nitrate Urine Negative (Negative)
[2025-01-23 18:58] LABS: Specific Gravity, Urine 1.070 (1.005-1.030)
== END 2025-01-23 18:24 | disposition left against medical advice (07) ==
PROVIDERS: Emergency Medicine; Emergency Provider Emergency Medicine; PCP Nurse Practitioner
DX: Z01.89 Encounter for other specified special examinations (principal); Z53.21 Procedure and treatment not carried out due to patient leaving prior to being seen by health care provider
CPT/HCPCS: 81001

== ENCOUNTER 2025-02-22 11:28 | Emergency (ER) | payer BC, MEDICAID, SELFPAY ==
--- OUTSIDE RECORDS SUMMARY | 2025-02-22 11:33 | XMS_ITS | Encounter Summary ---
Author Organization [facility] Address [address] [place] [address] Care Team Providers Care Piping Design Specialist Name Role Phone Reji Spain MD Primary Care Provider [phone] Encounter Details Date Type Department Care Team (Late Contact Info) Description 06/03/2024 Lab Requisition [facility] [address] [place] [phone] Andres Elliott MD [address] [place] [address] Social History Tobacco Use Types Packs/Day Years Used Date Smoking Tobacco: Never Smokeless Tobacco: Never Alcohol Use Standard Drinks/Week Comments No 0 (1 standard drink = 0.6 oz pur e alcohol) Comments No Sex and Gender Information Value Date Recorded Sex Assigned at Not on file Legal Sex Female 3:10 PM WASH BARREL LEADER Gender Identity Not on file Sexual Orientation Not on file documented as of this encounter Plan of Treatment Upcoming Encounters Date Type Department Care Team ([facility] Contact Info) Description 04/03/2025 8:00 AM WASH BARREL LEADER Office Visit [facility] Medicine [address] [phone] Fely Soto, CLEAN ROOM ASSEMBLER [address] [phone] documented as of this encounter Procedures Procedure Name Priority Date/Time Associated Diagnosis Comments HEMOGLOBIN A1C Routine 06/03/2024 4:00 AM CDT LIPID PANEL Routine 06/03/2024 4:00 AM CDT documented in this encounter Results * HEMOGLOBIN A1C (06/03/2024 4:00 AM CDT) HEMOGLOBIN A1C 5.3 <=5.6 % 06/03/2024 7:36 AM CDT [facility] EST. AVG GLUCOSE, A1C 105 mg/dL 06/03/2024 7:36 AM CDT [facility] Blood 06/03/2024 4:00 AM CDT 06/03/2024 5:54 AM CDT Narrative [facility] - 06/03/2024 7:36 AM CDT HGB A1C INTERPRETATION NORMAL: <5.7% PRE-DIABETES: 5.7 - 6.4% DIABETES: 6.5% OR GREATER us Andres Elliott MD CHEMISTRY ORDERABLES Final Res ult [facility] [id number] [address] [place] [address] * (ABNORMAL) LIPID PANEL (06/03/2024 4:00 AM CDT) CHOLESTEROL 121 <200 mg/dL 06/03/2024 7:25 AM CDT [facility] TRIGLYCERIDE 58 <150 mg/dL 06/03/2024 7:25 AM CDT [facility] HDL 36(L) 40 - 59 mg/dL 06/03/2024 7:25 AM CDT [facility] LDL CALCULATED 73 <100 mg/dL 06/03/2024 7:25 AM CDT [facility] NON-HDL CHOLESTEROL 85 <130 mg/dL 06/03/2024 7:25 AM CDT [facility] Blood Venipuncture / Unknown 06/03/2024 4:00 AM CDT 06/03/2024 5:54 AM CDT Narrative [facility] - 06/03/2024 7:25 AM CDT [...] Elliott MD CHEMISTRY ORDERABLES Final Res ult [facility] [id number] [address] [place] [address] documented in this encounter Visit Diagnoses Not on filedocumented in this encounter Additional Health Concerns Assessment Noted Time PHQ-9 Depression Total Score: 2 04/03/19 8:56 AM WASH BARREL LEADER documented as of this encounter Care Teams Piping Design Specialist Relationship Specialty Start Date End Date Reji Spain MD [address] [place] [phone] PCP - General Family Practice 06/26/24 documented as of this encounter
--- OUTSIDE RECORDS SUMMARY | 2025-02-22 11:33 | XMS_ITS | Encounter Summary ---
Author Organization [facility] Address [address] [place] [address] Care Team Providers Care Employee Services Manager Name Role Phone Reji Spain MD Primary Care Provider [phone] Encounter Details Date Type Department Care Team ([facility] Contact Info) Description 04/10/2024 Results Follow-Up [facility] Medicine [address] [phone] Celeste [place] LPN TSH REFLEXIVE, VITAMIN D [...] on file Legal Sex Female 3:10 PM TRAINING AND DOCUMENTATION SPECIALIST Gender Identity Not on file Sexual Orientation Not on file documented as of this encounter Miscellaneous Notes * Result Encounter Note - Celeste [place] LPN - 04/10/2024 8:28 AM CST Seen by patient Eun Thais Rm on 04/09/2024 5:54 PM .Celeste [place] LPN, 04/10/2024 8:28 AM NING AND DOCUMENTATION SPECIALIST documented in this encounter Plan of Treatment Upcoming Encounters Date Type Department Care Team ([facility] Contact Info) Description 04/03/2025 8:00 AM TRAINING AND DOCUMENTATION SPECIALIST Office Visit [facility] [address] [place] [phone] Fely Soto, MAINTENANCE SERVICE SUPERVISOR [address] [place] [phone] documented as of this encounter Visit Diagnoses Not on filedocumented in this encounter Additional Health Concerns Assessment Noted Time PHQ-9 Depression Total Score: 2 04/03/19 8:56 AM TRAINING AND DOCUMENTATION SPECIALIST documented as of this encounter Care Teams Employee Services Manager Relationship Specialty Start Date End Date Reji Spain MD [address] [place] [phone] PCP - General Family Practice 06/26/24 documented as of this encounter
--- OUTSIDE RECORDS SUMMARY | 2025-02-22 11:33 | XMS_ITS | Clinical Summary ---
Author Organization [facility] Address [address] [place] [address] Care Team Providers Care Security Management Specialist Name Role Phone Reji Spain MD Primary Care Provider [phone] Allergies No known active allergies Medications SUMAtriptan (Imitrex) 100 mg tabletIndicatio ns:Migraine without status migrainosus, not intractable, unspecified migraine type Take 0.5-1 Tablets (50-100 mg) by mouth see administration instructions. At earliest onset of migraine. may repeat in 2 hours; max dose 200mg in 24 hours 12 Tablet 2 12/28/19 Active Additional Information Patient not taking.Reported on [...] on file Legal Sex Female 3:10 PM SAP PORTAL CONSULTANT Gender Identity Not on file Sexual Orientation [...] st Contact Info) Description 04/03/2025 8:00 AM SAP PORTAL CONSULTANT Office Visit [facility] [address] [place] [address] [phone] Fely Soto, [facility] [address] [phone] Health Maintenance Due Date Last Done Comments HPV VACCINES (1 - 3-dose series) 2014 DTAP/TDAP/TD VACCINES (7 - T d or Tdap) 11/19/2022 11/19/2012, 07/30/2004, 07/31/2002, Additional history exists INFLUENZA VACCINE (#1) 2024 03/29/2012, 2002 Preventative Visit-Managed Medicaid 04/04/2025 04/03/2024, 07/15/2020, 11/19/2012 CERVICAL CANCER SCREENING 04/03/2027 PAP SMEAR 04/03/2027 04/03/2024, 04/03/2020, 07/15/2020 HPV/Cotest (21-29) 04/03/2029 04/03/2024, 07/15/2020 HPV/Cotest (30-65) 2029 04/03/2024, 07/15/2020 HEPATITIS B VACCINES Completed 02/23/2000, 1999, 1999 CHLAMYDIA SCREENING (ANNUAL) 11-24 YEARS Discontinued 04/03/2024, 02/10/2021, 07/15/2020, Additional history exists Procedures Procedure Name Priority Date/Time Associated Diagnosis Comments GC/CHLAMYDIA, UROGENITAL Routine 04/03/2024 10:00 AM SAP PORTAL CONSULTANT Encounter for surveillance of other contraceptive Screening for malignant neoplasm of cervix CERV/VAG CYTO SCREEN PAP RLFX HPV Routine 04/03/2024 10:00 AM SAP PORTAL CONSULTANT Encounter for surveillance of other contraceptive Screening for malignant neoplasm of cervix from Last 3 Months or Most Recently Relevant to Health Maintenance Results * GC/CHLAMYDIA, UROGENITAL (04/03/2024 10:00 AM SAP PORTAL CONSULTANT) CHLAMYDIA TRACHOMATIS RNA, TMA, UROGENITAL NOT DETECTED NOT DETECTED [facility] NEISSERIA GONORRHOEAE RNA, TMA, UROGENITAL NOT DETECTED NOT DETECTED [facility] COMMENT INFECTIOUS DISEASE [facility] Comment: The analytical performance characteristics of this assay, when used to test SurePath(TM) specimens have been determined by [facility]. The modifications have not been cleared or approved by the FDA. This assay has been validated pursuant to the CLIA regulations and is used for clinical purposes. For additional information, please refer to https://education.[employer]/faq/HRO434 (This link is being provided for information/ educational purposes only.) Test Performed at: [facility] [id number] [place] [address] Chilo Johnson MD Genital SWAB OF ENDOCERVIX / Unknown 04/03/2024 10:00 AM SAP PORTAL CONSULTANT 04/04/2024 4:39 AM SAP PORTAL CONSULTANT us Fely Soto GEODETIC ENGINEER MICROBIOLOGY - GENERAL ORDERA BLES Final Result [facility] [phone] [facility] [address] [place] [address] * (ABNORMAL) CERV/VAG CYTO SCREEN PAP RLFX HPV (04/03/2024 10:00 AM SAP PORTAL CONSULTANT) CLINICAL INFORMATION [facility] Comment:SCREENING LAST MENSTRUAL [...] clinical correlation and follow-up as clinically appropriate TEST CONDUCTOR: Kaye Vega Comment: YANIV HUYNH(ASCP) CT Screening location: [facility] [address] [place] [id number] PATHOLOGIST [facility] Comment: Shadi Abreu M.D., [...] and current clinical information. Test Performed at: [facility] [address] [place] [address] Chilo May Vo Genital SWAB OF ENDOCERVIX / Unknown 04/03/2024 10:00 AM SAP PORTAL CONSULTANT 04/04/2024 4:38 AM SAP PORTAL CONSULTANT Fely Shaquille Soto GEODETIC ENGINEER PATHOLOGY/CYTOLOGY ORDERABLES Final Result [facility] [phone] [facility] [address] [place] [address] from Last 3 Months or Most Recently Relevant to Health Maintenance Insurance [facility] MEDICAID Care Teams Security Management Specialist Relationship Specialty Start Date End Date Reji Spain MD [address] [place] [phone] PCP - General Family Practice 06/26/24
[2025-02-22 11:35] VITALS: BP 118/78; PULSE 74; RESP 17; TEMP 36.8; O2SAT 100; BMI 26.6
--- NOTE | 2025-02-22 11:43 | ECG_ITS ---
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 Measurements Intervals [place] Rate: 78 P: 3 CT: 132 QRS: 82 QRSD: 94 T: 54 QT: 356 QTc: 407 Interpretive Statements SINUS RHYTHM Compared to ECG 08/19/2024 16:21:46 Sinus arrhythmia no longer present Electronically Signed On 02-22-2025 14:24:29 [employer] by Benja Ruiz M.D. [email or web address].[email or web address]/[id number]
--- NOTE | 2025-02-22 11:43 | XRR_ITS ---
PROCEDURE INFORMATION: Exam: XR Chest Exam date and time: 02/22/2025 11:45 AM Age: 24 years old Clinical indication: Pain; Chest pressure; Additional info: Cp TECHNIQUE: Imaging protocol: Radiologic exam of the chest. Views: 1 view. COMPARISON: CR XR chest 1V portable [id number] 08/19/2024 4:51 PM FINDINGS: Lungs: Unremarkable. No consolidation. Pleural spaces: Unremarkable. No pleural effusion. No pneumothorax. Heart/Mediastinum: Unremarkable. No cardiomegaly. Bones/joints: Unremarkable. XR/XR chest 1V portable [id number] IMPRESSION: No acute process
[2025-02-22 11:53] LABS: Hematocrit 39.2 % (36-47); Hemoglobin 12.10 g/dL (11.27-16.99); Mean Corpuscular HGB Conc 30.9 g/dL (30-55); Mean Corpuscular Hemoglobin 23.2 pg (27-33); Mean Corpuscular Volume 75.1 fl (85-98); Nucleated Red Blood Cells % 0 %; Platelet Count 272 10^3/cmm (157-399); Red Blood Count 5.22 10^6/uL (3.85-5.65); White Blood Count 5.74 10^3/uL (3.29-11.43)
[2025-02-22 12:08] LABS: HCG, Serum Qual Negative (Negative)
[2025-02-22] MEDS: LORazepam 2 mg/mL INJ 1 mL 1 MG IVP (12:10)
[2025-02-22 12:15] LABS: Alanine Aminotransferase 11 U/L (0-33); Albumin Level 4.4 g/dL (3.5-5.2); Alkaline Phosphatase 65 U/L (35-105); Anion Gap 12.0 (5-19); Aspartate Amino Transferase 12 U/L (0-32); Blood Urea Nitrogen 7 mg/dL (6-20); Calcium 9.3 mg/dL (8.5-10.5); Carbon Dioxide 26 mmol/L (22-29); Chloride 102 mmol/L (98-107); Globulin 2.5 g/dL (1.3-4.6); Glucose 93 mg/dL (65-115); Lipase 21 U/L (13-60); Osmolality Calculated 280 mOsm/kg (285-295); Potassium 4.0 mmol/L (3.5-5.1); Sodium 136 mmol/L (136-145); Total Protein 6.9 g/dL (6.6-8.7)
--- NOTE | 2025-02-22 12:15 | W.ED.CHESTPA ---
HPI - Chest Pain General: Chief Complaint: Chest Pain Stated Complaint: CP Can't feel right side of body L side going numb Time Seen by Provider: 02/22/25 11:40 Source: patient Mode of arrival: ambulatory Limitations: no limitations History of Present Illness: 24-year-old female states that she has been having sharp central chest pain has been going on for 2 days. States the pains in the middle of her lower portion of her chest. States she has also had some numbness to her arms and face as well. She denies any shortness of breath denies any cough denies any fever denies any worse improved factors. Related Data Home Medications ?Medication ?Instructions ?Recorded ?Confirmed aripiprazole 15 mg tablet (Abilify) 15 mg PO DAILY 12/16/24 01/14/25 buspirone 10 mg tablet 10 mg PO BID 12/16/24 01/14/25 venlafaxine 25 mg tablet 25 mg PO DAILY 12/16/24 01/14/25 Previous Rx's ?Medication ?Instructions ?Recorded propranolol 10 mg tablet 10 mg PO BID #60 tabs 12/16/24 Allergies Allergy/AdvReac Type Severity Reaction Status Date / Time No Known Allergies Allergy Verified 01/23/25 17:08 Review of Systems Card: Reports: chest pain [facility] PFSH: Medical History Sterilization No pertinent past medical history Denies diabetes, asthma, hypertension, seizures, DVT/PE PCP: LUIS Aguillon Surgical History H/O tubal ligation (~10/2021) No history of previous surgery Family History Grandfather Hyperlipidemia maternal Hypertension maternal Stroke maternal Heart disease maternal and paternal Mother Thyroid disease Grandmother Heart disease maternal and paternal Breast cancer paternal, diagnosed at age 54 Colon cancer maternal, age at diagnosis unknown Family/Other Uterine cancer maternal aunt, diagnosed in her 30s. Treated with hysterectomy and chemo therapy. Denies family history of Ovarian cancer Diabetes Social History Smoking and tobacco/nicotine status: never used tobacco/nicotine Physical Exam Const: COMMON NORMALS: no acute distress, patient oriented x3 and healthy appearing HENMT: COMMON NORMALS: normocephalic and atraumatic HEAD & SCALP: normocephalic and atraumatic Eye: COMMON NORMALS: Equal, round and reactive pupils present PUPIL: Yes Equal, round and reactive pupils present Neck/C-Spine: COMMON NORMALS: full ROM and supple Chest: COMMONS NORMALS: normal inspection of the chest and normal palpation of entire chest wall Resp: COMMON NORMALS: normal respiratory effort, No retractions, No use of accessory muscles and clear to auscultation bilaterally AUSCULTATION: clear to auscultation bilaterally Cardio: COMMON NORMALS: regular rate, regular rhythm and No murmurs present (Cardio) RATE: regular rate RHYTHM: regular rhythm GI: COMMON NORMALS: Normal to inspection, nondistended, normoactive bowel sounds present, Soft to palpation, non-tender and no masses PALPATION: Yes Soft to palpation Extremity: COMMON NORMALS: normal to inspection and full ROM Neuro: COMMON NORMALS: patient oriented x3, moves all extremities and no focal motor deficits Psych: COMMON NORMALS: mental status grossly normal, Normal thought process present and cooperative THOUGHT PROCESS: Normal thought process present Skin: COMMON NORMALS: no rashes or lesions noted and no wounds GENERAL SKIN EXAM: no rashes or lesions noted Course Vital Signs: Vital signs: Vital Signs Temperature 98.2 F 02/22/25 11:35 Pulse Rate 88 02/22/25 12:25 Respiratory Rate 17 02/22/25 12:25 Blood Pressure 109/79 02/22/25 12:25 Pulse Oximetry 96 02/22/25 12:25 Oxygen Delivery Me thod Room Air 02/22/25 11:35 MDM - Chest Pain Medical Decision Making Patient presents here with chest pain is atypical in nature. Differential includes ACS, pulm emboli, pneumonia, pancreatitis. These were ruled out here x-ray here was interpreted by me showed no acute abnormality EKG interpreted by me shows normal sinus rhythm heart rate [address] elevation QRS 94 QTc 390 I did a lipase as well as showed no abnormality no significant lab abnormalities with negative troponin. Patient is well-appearing here she is stable for discharge follow-up with PCP return if worsening she understands agrees to plan. Medical Records I reviewed the patient's medical records. Lab Data I reviewed the patient's lab results. 02/22/25 11:50 02/22/25 11:50 Radiology Impressions Chest X-Ray 02/22/25 11:43 IMPRESSION: No acute process Laboratory Results WBC 5.74 10^3/uL (3.29-11.43) 02/22/25 11:50 RBC 5.22 10^6/uL (3.85-5.65) 02/22/25 11:50 Hgb 12.10 g/dL (11.27-16.99) 02/22/25 11:50 Hct 39.2 % (36-47) 02/22/25 11:50 MCV 75.1 fl (85-98) L 02/22/25 11:50 MCH 23.2 pg (27-33) L 02/22/25 11:50 MCHC 30.9 g/dL (30-55) 02/22/25 11:50 RDW 14.9 % (12.1-15.1) 02/22/25 11:50 Plt Count 272 10^3/cmm (157-399) 02/22/25 11:50 MPV 11.4 fL (7.4-10.4) H 02/22/25 11:50 Neut % (Auto) 61.1 % 02/22/25 11:50 Lymph % (Auto) 26.5 % 02/22/25 11:50 Band[place] % (Auto) 9.8 % 02/22/25 11:50 Eos % (Auto) 1.7 % 02/22/25 11:50 Baso % (Auto) 0.7 % 02/22/25 11:50 Neut # (Auto) 3.51 10^3/uL (1.8-7.7) 02/22/25 11:50 Lymph # (Auto) 1.5 10^3/uL (0.8-4.8) 02/22/25 11:50 [place] # (Auto) 0.6 10^3/uL (0.2-0.9) 02/22/25 11:50 Eos # (Auto) 0.1 10^3/uL (0.0-0.8) 02/22/25 11:50 Baso # (Auto) 0.0 10^3/uL (0.0-0.1) 02/22/25 11:50 Nucleated RBC % (auto) 0 % 02/22/25 11:50 Nucleated RBCs # 0.0 /100WBC 02/22/25 11:50 D-Dimer 0.43 ug/mLFEU (0-0.59) 02/22/25 11:50 Sodium 136 mmol/L (136-145) 02/22/25 11:50 Potassium 4.0 mmol/L (3.5-5.1) 02/22/25 11:50 Chloride 102 mmol/L (98-107) 02/22/25 11:50 Carbon Dioxide 26 mmol/L (22-29) 02/22/25 11:50 Anion Gap 12.0 (5-19) 02/22/25 11:50 BUN 7 mg/dL (6-20) 02/22/25 11:50 Creatinine 0.4 mg/dL (0.5-0.9) L 02/22/25 11:50 GFR Calculation 194.5 mL/min (90-130) H 02/22/25 11:50 Glucose 93 mg/dL (65-115) 02/22/25 11:50 Calculated Osmolality 280 mOsm/kg (285-295) L 02/22/25 11:50 Calcium 9.3 mg/dL (8.5-10.5) 02/22/25 11:50 Total Bilirubin 0.3 mg/dL (0.15-1.2) 02/22/25 11:50 AST 12 U/L (0-32) 02/22/25 11:50 ALT 11 U/L (0-33) 02/22/25 11:50 Alkaline Phosphatase 65 U/L (35-105) 02/22/25 11:50 Troponin T Baseline < 6 ng/L (0-10) 02/22/25 11:50 Total Protein 6.9 g/dL (6.6-8.7) 02/22/25 11:50 Albumin 4.4 g/dL (3.5-5.2) 02/22/25 11:50 Globulin 2.5 g/dL (1.3-4.6) 02/22/25 11:50 Lipase 21 U/L (13-60) 02/22/25 11:50 HCG, Qual Negative (Negative) 02/22/25 11:50 All radiology interpretation(s) finalized by discharge Discharge Plan Discharge Patient Disposition: Home Clinical Impression: Atypical chest pain Condition: Stable Prescriptions: No Action venlafaxine 25 mg tablet 25 mg PO DAILY buspirone 10 mg tablet 10 mg PO BID aripiprazole [Abilify] 15 mg tablet 15 mg PO DAILY propranolol 10 mg tablet 10 mg PO BID Qty: 60 0RF Discharge Orders: Discharge ED (Routine); Ordered 02/22/25 Ordered By: Beverly Talbert Referrals: Laya Díaz FNP [Primary Care Provider, Nurse Practitioner] - 4-7 days Discharge Diet: Advance as tolerated Discharge Activity: Resume usual activity Patient Instructions: Chest Pain (ED) Print Language: Portuguese Coding Level of Care Code ED Advertising Operations Manager for Chg Fwd Heart Score HEART Score Components History: Slightly Suspicous EKG: Normal Age: Less than 45 yrs Risk Factors: No Risk Factors Known Troponin: Baseline Trop <16 ng/L HEART Score RESULT HEART Score: 0
[2025-02-22 12:16] LABS: Troponin(5th) Baseline < 6 ng/L (0-10)
[2025-02-22 12:25] VITALS: BP 109/79; PULSE 88; RESP 17; O2SAT 96
[2025-02-22 12:29] VITALS: BP 109/79; PULSE 99; RESP 14; O2SAT 100
== END 2025-02-22 12:34 | disposition home or self-care (01) ==
PROVIDERS: Emergency Provider Emergency Medicine; PCP Nurse Practitioner
DX: R07.89 Other chest pain (principal)
CPT/HCPCS: 71045; 80053; 83690; 84484; 84703; 85025; 85378; 93005; 96374; 96375; 99285; J1885; J2060